=== PATIENT | male | born 2005 | race Caucasian/White ===

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

== ENCOUNTER 2025-02-16 04:28 | Emergency (ER) | payer MEDICAID, SELFPAY ==
--- OUTSIDE RECORDS SUMMARY | 2025-02-16 04:36 | XMS_ITS | Encounter Summary ---
Author Organization [employer] Address 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
--- OUTSIDE RECORDS SUMMARY | 2025-02-16 04:36 | XMS_ITS | Encounter Summary ---
Author Organization [facility] Address [address] [place] [address] Care Team Providers Care Manager Branch Name Role Phone Edy Ramos MD Primary Care Provider Earla ble Encounter Details Date Type Department Care Team (Late st Contact Info) Description 2005 Inpatient Historical HIS IN BED Shante Saunders MD NO ADDRESS ON FILE Single [facility] (Primary Dx) Social History Tobacco Use Types Packs/Day Years Used Date Smoking Tobacco: Never Assessed Sex and Gender Information Value Date Recorded Sex Assigned at Not on file Legal Sex Male 4:27 AM [employer] Gender Identity Not on file Sexual Orientation Not on file documented as of this encounter Plan of Treatment Not on file documented as of this encounter Procedures Procedure Name Priority Date/Time Associated Diagnosis Comments METABOLIC SCREEN Routine 2005 5:28 AM CDT DIFFERENTIAL, MANUAL Routine 2005 3:11 PM CDT CBC WITH DIFFERENTIAL Routine 2005 3:11 PM CDT POC GLUCOSE Routine 2005 3:06 PM CDT BILIRUBIN, TOTAL AND DIRECT Routine 2005 4:20 AM CDT POC GLUCOSE Routine 2005 4:10 AM CDT BASIC CHEM/BILI PROFILE Routine 2005 4:11 AM CDT BILIRUBIN, TOTAL AND DIRECT Routine 2005 4:11 AM CDT POC GLUCOSE Routine 2005 4:10 AM CDT POC GLUCOSE Routine 2005 1:18 AM CDT POC GLUCOSE Routine 2005 7:22 PM CDT BASIC CHEM/BILI PROFILE Routine 2005 4:29 AM CDT DIFFERENTIAL, MANUAL Routine 2005 4:29 AM CDT BILIRUBIN, TOTAL AND DIRECT Routine 2005 4:29 AM CDT CBC WITH DIFFERENTIAL Routine 2005 4:29 AM CDT POC BLOOD GAS AND GLUCOSE Routine 2005 4:20 AM CDT POC GLUCOSE Routine 2005 10:14 PM CDT POC GLUCOSE Routine 2005 9:55 AM CDT PLATELET COUNT Routine 2005 9:53 AM CDT DIFFERENTIAL, MANUAL Routine 2005 7:26 AM CDT CBC WITH DIFFERENTIAL Routine 2005 7:26 AM CDT POC GLUCOSE Routine 2005 7:18 AM CDT BASIC CHEM/BILI PROFILE Routine 2005 4:20 AM CDT BILIRUBIN, TOTAL AND DIRECT Routine 2005 4:20 AM CDT POC BLOOD GAS AND GLUCOSE Routine 2005 4:17 AM CDT POC GLUCOSE Routine 2005 7:21 PM CDT POC GLUCOSE Routine 2005 10:55 AM CDT POC BLOOD GAS AND GLUCOSE Routine 2005 4:49 AM CDT BASIC CHEM/BILI PROFILE Routine 2005 4:41 AM CDT DIFFERENTIAL, MANUAL Routine 2005 4:41 AM CDT BILIRUBIN, TOTAL AND DIRECT Routine 2005 4:41 AM CDT CBC WITH DIFFERENTIAL Routine 2005 4:41 AM CDT POC GLUCOSE Routine 2005 11:45 PM CDT POC GLUCOSE Routine 2005 5:24 PM CDT POC GLUCOSE Routine 2005 11:12 AM CDT BASIC CHEM/BILI PROFILE Routine 2005 4:56 AM CDT DIFFERENTIAL, MANUAL Routine 2005 4:56 AM CDT BILIRUBIN, TOTAL AND DIRECT Routine 2005 4:56 AM CDT POC BLOOD GAS AND GLUCOSE Routine 2005 4:56 AM CDT CBC WITH DIFFERENTIAL Routine 2005 4:56 AM CDT POC GLUCOSE Routine 2005 12:48 AM CDT POC GLUCOSE Routine 2005 7:33 PM CDT GENTAMICIN LEVEL TROUGH Routine 2005 10:35 AM CDT POC BLOOD GAS AND GLUCOSE Routine 2005 10:18 AM CDT BASIC CHEM/BILI PROFILE Routine 2005 4:29 AM CDT DIFFERENTIAL, MANUAL Routine 2005 4:29 AM CDT BILIRUBIN, TOTAL AND DIRECT Routine 2005 4:29 AM CDT CBC WITH DIFFERENTIAL Routine 2005 4:29 AM CDT POC BLOOD GAS AND GLUCOSE Routine 2005 4:11 AM CDT POC BLOOD GAS AND GLUCOSE Routine 2005 10:03 PM CDT DIFFERENTIAL, MANUAL Routine 2005 7:40 PM CDT BILIRUBIN, TOTAL AND DIRECT Routine 2005 7:40 PM CDT CBC WITH DIFFERENTIAL Routine 2005 7:40 PM CDT BASIC METABOLIC PANEL Routine 2005 7:40 PM CDT POC BLOOD GAS AND GLUCOSE Routine 2005 6:05 PM CDT POC BLOOD GAS AND GLUCOSE Routine 2005 3:10 PM CDT BILIRUBIN, TOTAL AND DIRECT Routine 2005 12:57 PM CDT BASIC METABOLIC PANEL Routine 2005 12:57 PM CDT DIFFERENTIAL, MANUAL Routine 2005 12:56 PM CDT POC BLOOD GAS AND GLUCOSE Routine 2005 12:56 PM CDT CBC WITH DIFFERENTIAL Routine 2005 12:56 PM CDT POC BLOOD GAS AND GLUCOSE Routine 2005 11:40 AM CDT POC BLOOD GAS AND GLUCOSE Routine 2005 9:50 AM CDT POC BLOOD GAS AND GLUCOSE Routine 2005 8:48 AM CDT POC BLOOD GAS AND GLUCOSE Routine 2005 7:25 AM CDT SCREEN, NEOGEN Routine 2005 6:03 AM CDT METABOLIC SCREEN Routine 2005 6:03 AM CDT DIFFERENTIAL, MANUAL Routine 2005 5:02 AM CDT CBC WITH DIFFERENTIAL Routine 2005 5:02 AM CDT BASIC METABOLIC PANEL Routine 2005 5:02 AM CDT POC BLOOD GAS AND GLUCOSE Routine 2005 4:56 AM CDT POC BLOOD GAS AND GLUCOSE Routine 2005 2:56 AM CDT POC BLOOD GAS AND GLUCOSE Routine 2005 1:03 AM CDT POC BLOOD GAS AND GLUCOSE Routine 2005 11:12 PM CDT POC GLUCOSE Routine 2005 10:49 PM CDT DIFFERENTIAL, MANUAL Routine 2005 10:30 PM CDT CBC WITH DIFFERENTIAL Routine 2005 10:30 PM CDT MAGNESIUM LEVEL Routine 2005 10:30 PM CDT BASIC METABOLIC PANEL Routine 2005 10:30 PM CDT POC BLOOD GAS AND GLUCOSE Routine 2005 10:11 PM CDT MYCOPLASMA AND UREAPLASMA DETECTION Routine 2005 9:58 PM CDT US HEAD Routine 2005 9:16 PM CDT US HEAD Routine 2005 9:16 PM CDT US HEAD Routine 2005 9:16 PM CDT XR CHEST PA OR AP 1 VW Routine 2005 9:16 PM CDT XR CHEST PA OR AP 1 VW Routine 2005 9:16 PM CDT XR CHEST PA OR AP 1 VW Routine 2005 9:16 PM CDT XR CHEST PA OR AP 1 VW Routine 2005 9:16 PM CDT XR CHEST PA OR AP 1 VW Routine 2005 9:16 PM CDT XR CHEST PA OR AP 1 VW Routine 2005 9:16 PM CDT documented in this encounter Results * METABOLIC SCREEN (2005 5:28 AM CDT) PKU Sent to Reference Lab INTERFACE SYSTEM 2005 5:28 AM CDT Shante Saunders MD CHEMISTRY ORDERABLES Final Result INTERFACE SYSTEM Refer to clinic/hospital department * (ABNORMAL) DIFFERENTIAL, MANUAL (2005 3:11 PM CDT) NEUTROPHILS, SEG 23 15 - 35 % INT ERFACE SYSTEM LYMPHOCYTES 53 43 - 53 % INTERFAC E SYSTEM MONOCYTE 9 8 - 9 % INTERFACE SYSTEM EOSINOPHILS 9(H) 0 - 3 % INTERFAC E SYSTEM BASOPHILS 5(H) 0 - 1 % INTERFACE SYSTEM MYELOCYTES 1 <=1 % INTERFACE SYSTEM PLATELET EST. Normal Normal INTERF FLOWER SYSTEM RBC MORPHOLOGY Abnormal(A ) Normal INTERFACE SYSTEM ANISOCYTOSIS 1+(A) None Seen INTERFA CE SYSTEM POLYCHROMASIA 1+(A) None Seen INTERF FLOWER SYSTEM 2005 3:11 PM CDT Shante Saunders MD HEMATOLOGY ORDERABLES COM F inal Result INTERFACE SYSTEM Refer to clinic/hospital department * (ABNORMAL) CBC WITH DIFFERENTIAL (2005 3:11 PM CDT) WBC 7.0 5.0 - 21.0 K/ul INTERFACE SYSTEM RBC 3.78 3.00 - 6.20 Mil/ul INTERFACE SYSTEM HEMOGLOBIN 11.9(L) 12.2 - 16.0 g/dL INTERFACE SYSTEM HEMATOCRIT 34.6(L) 38.0 - 52.0 % INTERFACE SYSTEM MCV 91.5(L) 95.0 - 118.0 Fl INTERFACE SYSTEM MCH 31.5(L) 33.0 - 41.0 pg INTERFACE SYSTEM MCHC 34.4(H) 27.0 - 33.0 g/dL INTERFACE SYSTEM RDW 15.7(H) 11.0 - 14.5 % INTERFACE SYSTEM PLATELETS 292 140 - 440 K/ul INTERFACE SYSTEM MPV 11.5 8.9 - 12.8 Fl INTERFACE SYSTEM NEUTROPHILS 22.2(L) 42.2 - 75.2 % INTERFACE SYSTEM LYMPHOCYTES 61.9(H) 43.0 - 53.0 % INTERFACE SYSTEM MONOCYTES 9.4(H) 6.0 - 7.0 % INTERFACE SYSTEM EOSINOPHILS 4.1 0.0 - 7.0 % INTERFACE SYSTEM BASOPHILS 2.4(H) 0.0 - 1.0 % INTERFACE SYSTEM NEUTROPHIL ABSOLUTE 1.5(L) 2.0 - 8.0 K/uL INTERFACE SYSTEM LYMPHOCYTE ABSOLUTE 4.3(H) 1.2 - 4.0 K/ul INTERFACE SYSTEM MONOCYTE ABSOLUTE 0.7(H) 0.1 - 0.6 K/ul INTERFACE SYSTEM EOSINOPHIL ABSOLUTE 0.3 0.0 - 0.7 K/ul INTERFACE SYSTEM BASOPHILS ABSOLUTE 0.2 0.0 - 0.2 K/ul INTERFACE SYSTEM 2005 3:11 PM CDT Shante Saunders MD HEMATOLOGY ORDERABLES Final Result Performing Organization Address [facility] Phone Number INTERFACE SYSTEM Refer to clinic/hospital department * POC GLUCOSE (2005 3:06 PM CDT) GLUCOSE POC 91 60 - 100 mg/dL INTERFACE SYSTEM 2005 3:06 PM CDT Shante Saunders MD POINT OF CARE TESTING Final Result Performing Organization Address [facility] Phone Number INTERFACE SYSTEM Refer to clinic/hospital department * BILIRUBIN, TOTAL AND DIRECT (2005 4:20 AM CDT) BILIRUBIN TOTAL 4.7 0.5 - 10.0 mg/dL INTERFACE SYSTEM BILIRUBIN DIRECT 0.5 0.0 - 1.0 mg/dL INTERFACE SYSTEM 2005 4:20 AM CDT Shante Saunders MD CHEMISTRY ORDERABLES Final Result Performing Organization Address [facility] Phone Number INTERFACE SYSTEM Refer to clinic/hospital department * POC GLUCOSE (2005 4:10 AM CDT) GLUCOSE POC 82 60 - 100 mg/dL INTERFACE SYSTEM 2005 4:10 AM CDT Shante Saunders MD POINT OF CARE TESTING Final Result Performing Organization Address [facility] Phone Number INTERFACE SYSTEM Refer to clinic/hospital department * BILIRUBIN, TOTAL AND DIRECT (2005 4:11 AM CDT) BILIRUBIN TOTAL 6.2 0.5 - 10.0 mg/dL INTERFACE SYSTEM BILIRUBIN DIRECT 0.5 0.0 - 1.0 mg/dL INTERFACE SYSTEM 2005 4:11 AM CDT Shante Saunders MD CHEMISTRY ORDERABLES Final Result Performing Organization Address [facility] Phone Number INTERFACE SYSTEM Refer to clinic/hospital department * (ABNORMAL) PANEL 1 (2005 4:11 AM CDT) GLUCOSE 100(H) 50 - 80 mg/dL INTERFACE SYSTEM TRIGLYCERIDE 39 0 - 158 mg/dL INTERFACE SYSTEM BUN 11 9 - 20 mg/dL INTERFACE SYSTEM CREATININE 0.5 0.2 - 0.7 mg/dL INTERFACE SYSTEM SODIUM 134(L) 136 - 145 mEq/L INTERFACE SYSTEM POTASSIUM 5.0 3.5 - 5.0 mEq/L INTERFACE SYSTEM Comment:Specimen slightly he molyzed CHLORIDE 103 95 - 110 mEq/L INTERFACE SYSTEM CO2 29 22 - 32 mmol/l INTERFACE SYSTEM ANION GAP 7(L) 9 - 20 mEq/L INTERFACE SYSTEM OSMOLALITY, CALCULATED 278 275 - 295 mOsm/Kg INTERFACE SYSTEM CALCIUM 10.0 8.4 - 10.5 mg/dL INTERFACE SYSTEM PHOSPHORUS 5.4 4.2 - 9.0 mg/dL INTERFACE SYSTEM MAGNESIUM 1.7 1.7 - 2.4 mg/dL INTERFACE SYSTEM Comment: As of 05 the [facility] has changed testing methods. The new reference range is 1.7-2.4 The old referance range was 1.6-2.3 2005 4:11 AM CDT Shante Saunders MD CHEMISTRY ORDERABLES Final Result Performing Organization Address [facility] Phone Number INTERFACE SYSTEM Refer to clinic/hospital department * (ABNORMAL) POC GLUCOSE (2005 4:10 AM CDT) GLUCOSE POC 98(H) 50 - 80 mg/dL INTERFACE SYSTEM 2005 4:10 AM CDT Shante Saunders MD POINT OF CARE TESTING Final Result Performing Organization Address [facility] Phone Number INTERFACE SYSTEM Refer to clinic/hospital department * (ABNORMAL) POC GLUCOSE (2005 1:18 AM CDT) GLUCOSE POC 82(H) 50 - 80 mg/dL INTERFACE SYSTEM 2005 1:18 AM CDT Shante Saunders MD POINT OF CARE TESTING Final Result Performing Organization Address [facility] Phone Number INTERFACE SYSTEM Refer to clinic/hospital department * POC GLUCOSE (2005 7:22 PM CDT) GLUCOSE POC 78 50 - 80 mg/dL INTERFACE SYSTEM 2005 7:22 PM CDT us Shante Saunders MD POINT OF CARE TESTING Final Result Performing Organization Address [facility] Phone Number INTERFACE SYSTEM Refer to clinic/hospital department * (ABNORMAL) DIFFERENTIAL, MANUAL (2005 4:29 AM CDT) NEUTROPHILS, SEG 14(L) 15 - 35 % INT ERFACE SYSTEM BANDS 8 6 - 15 % INTERFACE SYSTEM LYMPHOCYTES 61(H) 43 - 53 % INTERFAC E SYSTEM MONOCYTE 8 8 - 9 % INTERFACE SYSTEM EOSINOPHILS 8(H) 0 - 3 % INTERFAC E SYSTEM METAMYELOCYTE 1 0 - 1 % INTERF FLOWER SYSTEM PLATELET EST. Normal Normal INTERF FLOWER SYSTEM RBC MORPHOLOGY Abnormal(A ) Normal INTERFACE SYSTEM ANISOCYTOSIS 1+(A) None Seen INTERFA CE SYSTEM POIKILOCYTES 1+(A) None Seen INTERFA CE SYSTEM 2005 4:29 AM CDT Shante Saunders MD HEMATOLOGY ORDERABLES COM F inal Result Performing Organization Address [facility] de Phone Number INTERFACE SYSTEM Refer to clinic/hospital department * BILIRUBIN, TOTAL AND DIRECT (2005 4:29 AM CDT) BILIRUBIN TOTAL 6.3 0.5 - 10.0 mg/dL INTERFACE SYSTEM BILIRUBIN DIRECT 0.4 0.0 - 1.0 mg/dL INTERFACE SYSTEM 2005 4:29 AM CDT Shante Saunders MD CHEMISTRY ORDERABLES Final Result Performing Organization Address [facility] Phone Number INTERFACE SYSTEM Refer to clinic/hospital department * (ABNORMAL) PANEL 1 (2005 4:29 AM CDT) GLUCOSE 93(H) 50 - 80 mg/dL INTERFACE SYSTEM TRIGLYCERIDE 82 0 - 158 mg/dL INTERFACE SYSTEM BUN 13 9 - 20 mg/dL INTERFACE SYSTEM CREATININE 0.4 0.2 - 0.7 mg/dL INTERFACE SYSTEM SODIUM 135(L) 136 - 145 mEq/L INTERFACE SYSTEM POTASSIUM 5.9(H) 3.5 - 5.0 mEq/L INTERFACE SYSTEM Comment:Specimen slightly he molyzed CHLORIDE 105 95 - 110 mEq/L INTERFACE SYSTEM CO2 20(L) 22 - 32 mmol/l INTERFACE SYSTEM ANION GAP 16 9 - 20 mEq/L INTERFACE SYSTEM OSMOLALITY, CALCULATED 282 275 - 295 mOsm/Kg INTERFACE SYSTEM CALCIUM 10.2 8.4 - 10.5 mg/dL INTERFACE SYSTEM PHOSPHORUS 5.4 4.2 - 9.0 mg/dL INTERFACE SYSTEM MAGNESIUM 1.8 1.7 - 2.4 mg/dL INTERFACE SYSTEM Comment: As of 05 the [facility] has changed testing methods. The new reference range is 1.7-2.4 The old referance range was 1.6-2.3 2005 4:29 AM CDT Shante Saunders MD CHEMISTRY ORDERABLES Final Result Performing Organization Address [facility] Phone Number INTERFACE SYSTEM Refer to clinic/hospital department * (ABNORMAL) CBC WITH DIFFERENTIAL (2005 4:29 AM CDT) WBC 6.3(L) 9.4 - 34.0 K/ul INTERFACE SYSTEM RBC 4.57 3.60 - 6.60 Mil/ul INTERFACE SYSTEM HEMOGLOBIN 14.9 14.2 - 17.2 g/dL INTERFACE SYSTEM HEMATOCRIT 43.6(L) 47.0 - 57.0 % INTERFACE SYSTEM MCV 95.4 95.0 - 118.0 Fl INTERFACE SYSTEM MCH 32.6 31.0 - 37.0 pg INTERFACE SYSTEM MCHC 34.2 31.0 - 37.0 g/dL INTERFACE SYSTEM RDW 16.6(H) 11.0 - 14.5 % INTERFACE SYSTEM PLATELETS 186 140 - 440 K/ul INTERFACE SYSTEM MPV 11.6 8.9 - 12.8 Fl INTERFACE SYSTEM 2005 4:29 AM CDT us Shante Saunders MD HEMATOLOGY ORDERABLES Final Result INTERFACE SYSTEM Refer to clinic/hospital department * (ABNORMAL) POC ISTAT 8 (2005 4:20 AM CDT) SPECIMEN TYPE Capillary INTERF FLOWER SYSTEM Comment: Pulse OX: 96 Hemoglobin calculated from Hematocrit result FIO2 21 INTERFACE SYSTEM PH 7.34(L) 7.35 - 7.45 Unit INTERFACE SYSTEM PH TEMP CORRECT 7.34(L) 7.35 - 7.45 Unit INTERFACE SYSTEM PCO2 POC 49(H) 35 - 45 mmHg INTERFACE SYSTEM PCO2 TEMP CORRECT 49(H) 35 - 45 mmHg INTERFACE SYSTEM PO2 57(L) 80 - 105 mmHg INTERFACE SYSTEM PO2 TEMP CORRECT 57(L) 80 - 105 mmHg INTERFACE SYSTEM HCO3 (CALC) POC 26.7(H) 22.0 - 26.0 mmol/l INTERFACE SYSTEM BASE EXCESS 1 -2 - 3 mmol/l INTERFACE SYSTEM HEMOGLOBIN POC 16.3 3 g/dL 13.5 - 18.0 g/dL INTERFACE SYSTEM HEMATOCRIT ABG 48 38 - 51 % INTER FACE SYSTEM O2 SATURATION 87(L) 95 - 98 % INTERF FLOWER SYSTEM TCO2 (CALC) POC 28(H) 23 - 27 mmol/l INTERFACE SYSTEM SODIUM 136(L) 138 - 146 mEq/L INTERFACE SYSTEM POTASSIUM 5.4(H) 3.5 - 4.9 mEq/L INTERFACE SYSTEM CALCIUM IONIZED 1.38(H) 1.12 - 1.32 mmol/l INTERFACE SYSTEM GLUCOSE 100(H) 50 - 80 mg/dL INTERFACE SYSTEM 2005 4:20 AM CDT Shante Saunders MD ABG ORDERABLES Final Resul t Performing Organization Address [facility] Phone Number INTERFACE SYSTEM Refer to clinic/hospital department * (ABNORMAL) POC GLUCOSE (2005 10:14 PM CDT) GLUCOSE POC 96(H) 50 - 80 mg/dL INTERFACE SYSTEM 2005 10:1 4 PM CDT Shante Saunders MD POINT OF CARE TESTING Final Result Performing Organization Address [facility] Phone Number INTERFACE SYSTEM Refer to clinic/hospital department * (ABNORMAL) POC GLUCOSE (2005 9:55 AM CDT) GLUCOSE POC 104(H) 50 - 80 mg/dL INTERFACE SYSTEM 2005 9:55 AM CDT Shante Saunders MD POINT OF CARE TESTING Final Result Performing Organization Address [facility] Phone Number INTERFACE SYSTEM Refer to clinic/hospital department * PLATELET COUNT (2005 9:53 AM CDT) Pathologist [facility] PLATELETS 218 140 - 440 K/ul INTERFACE SYSTEM 2005 9:53 AM CDT Shante Saunders MD HEMATOLOGY ORDERABLES Final Result Performing Organization Address [facility] de Phone Number INTERFACE SYSTEM Refer to clinic/hospital department * (ABNORMAL) DIFFERENTIAL, MANUAL (2005 7:26 AM CDT) NEUTROPHILS, SEG 23 15 - 35 % INT ERFACE SYSTEM BANDS 4(L) 6 - 15 % INTERFACE SYSTEM LYMPHOCYTES 57(H) 43 - 53 % INTERFAC E SYSTEM MONOCYTE 5(L) 8 - 9 % INTERFACE SYSTEM EOSINOPHILS 5(H) 0 - 3 % INTERFAC E SYSTEM BASOPHILS 4(H) 0 - 1 % INTERFACE SYSTEM METAMYELOCYTE 1 0 - 1 % INTERF FLOWER SYSTEM MYELOCYTES 1 <=1 % INTERFACE SYSTEM PLATELET EST. Decreased( A) Normal INTERFACE SYSTEM RBC MORPHOLOGY Normal Normal INTER FACE SYSTEM 2005 7:26 AM CDT Shante Saunders MD HEMATOLOGY ORDERABLES COM F inal Result Performing Organization Address [facility] de Phone Number INTERFACE SYSTEM Refer to clinic/hospital department * (ABNORMAL) CBC WITH DIFFERENTIAL (2005 7:26 AM CDT) WBC 6.5(L) 9.4 - 34.0 K/ul INTERFACE SYSTEM RBC 4.78 3.60 - 6.60 Mil/ul INTERFACE SYSTEM HEMOGLOBIN 15.5 14.2 - 17.2 g/dL INTERFACE SYSTEM HEMATOCRIT 47.2 47.0 - 57.0 % INTERFACE SYSTEM MCV 98.7 95.0 - 118.0 Fl INTERFACE SYSTEM MCH 32.4 31.0 - 37.0 pg INTERFACE SYSTEM MCHC 32.8 31.0 - 37.0 g/dL INTERFACE SYSTEM RDW 17.0(H) 11.0 - 14.5 % INTERFACE SYSTEM PLATELETS 64(L) 140 - 440 K/ul INTERFACE SYSTEM MPV 11.5 8.9 - 12.8 Fl INTERFACE SYSTEM 2005 7:26 AM CDT Shante Saunders MD HEMATOLOGY ORDERABLES Final Result Performing Organization Address [facility] Phone Number INTERFACE SYSTEM Refer to clinic/hospital department * (ABNORMAL) POC GLUCOSE (2005 7:18 AM CDT) GLUCOSE POC 98(H) 50 - 80 mg/dL INTERFACE SYSTEM 2005 7:18 AM CDT Shante Saunders MD POINT OF CARE TESTING Final Result Performing Organization Address [facility] Co de Phone Number INTERFACE SYSTEM Refer to clinic/hospital department * BILIRUBIN, TOTAL AND DIRECT (2005 4:20 AM CDT) BILIRUBIN TOTAL 5.3 0.5 - 10.0 mg/dL INTERFACE SYSTEM BILIRUBIN DIRECT 0.5 0.0 - 1.0 mg/dL INTERFACE SYSTEM 2005 4:20 AM CDT Shante Saunders MD CHEMISTRY ORDERABLES Final Result Performing Organization Address [facility] Co de Phone Number INTERFACE SYSTEM Refer to clinic/hospital department * (ABNORMAL) PANEL 1 (2005 4:20 AM CDT) GLUCOSE 100(H) 50 - 80 mg/dL INTERFACE SYSTEM TRIGLYCERIDE 87 0 - 158 mg/dL INTERFACE SYSTEM BUN 13 9 - 20 mg/dL INTERFACE SYSTEM CREATININE 0.4 0.2 - 0.7 mg/dL INTERFACE SYSTEM SODIUM 140 136 - 145 mEq/L INTERFACE SYSTEM POTASSIUM 5.5(H) 3.5 - 5.0 mEq/L INTERFACE SYSTEM CHLORIDE 105 95 - 110 mEq/L INTERFACE SYSTEM CO2 24 22 - 32 mmol/l INTERFACE SYSTEM ANION GAP 17 9 - 20 mEq/L INTERFACE SYSTEM OSMOLALITY, CALCULATED 291 275 - 295 mOsm/Kg INTERFACE SYSTEM CALCIUM 10.0 8.4 - 10.5 mg/dL INTERFACE SYSTEM PHOSPHORUS 5.4 4.2 - 9.0 mg/dL INTERFACE SYSTEM MAGNESIUM 2.1 1.7 - 2.4 mg/dL INTERFACE SYSTEM Comment: As of 05 the [facility] has changed testing methods. The new reference range is 1.7-2.4 The old referance range was 1.6-2.3 2005 4:20 AM CDT Shante Saunders MD CHEMISTRY ORDERABLES Final Result Performing Organization Address [facility] Co de Phone Number INTERFACE SYSTEM Refer to clinic/hospital department * (ABNORMAL) POC ISTAT 8 (2005 4:17 AM CDT) SPECIMEN TYPE Capillary INTERF FLOWER SYSTEM Comment: Pulse OX: 94 Hemoglobin calculated from Hematocrit result FIO2 21 INTERFACE SYSTEM PH 7.35 7.35 - 7.45 Unit INTERFACE SYSTEM PH TEMP CORRECT 7.35 7.35 - 7.45 Unit INTERFACE SYSTEM PCO2 POC 48(H) 35 - 45 mmHg INTERFACE SYSTEM PCO2 TEMP CORRECT 48(H) 35 - 45 mmHg INTERFACE SYSTEM PO2 60(L) 80 - 105 mmHg INTERFACE SYSTEM PO2 TEMP CORRECT 60(L) 80 - 105 mmHg INTERFACE SYSTEM HCO3 (CALC) POC 26.6(H) 22.0 - 26.0 mmol/l INTERFACE SYSTEM BASE EXCESS 1 -2 - 3 mmol/l INTERFACE SYSTEM HEMOGLOBIN POC 15.6 3 g/dL 13.5 - 18.0 g/dL INTERFACE SYSTEM HEMATOCRIT ABG 46 38 - 51 % INTER FACE SYSTEM O2 SATURATION 89(L) 95 - 98 % INTERF FLOWER SYSTEM TCO2 (CALC) POC 28(H) 23 - 27 mmol/l INTERFACE SYSTEM SODIUM 137(L) 138 - 146 mEq/L INTERFACE SYSTEM POTASSIUM 5.5(H) 3.5 - 4.9 mEq/L INTERFACE SYSTEM CALCIUM IONIZED 1.35(H) 1.12 - 1.32 mmol/l INTERFACE SYSTEM GLUCOSE 105(H) 50 - 80 mg/dL INTERFACE SYSTEM 2005 4:17 AM CDT Shante Saunders MD ABG ORDERABLES Final Resul t Performing Organization Address [facility] Co de Phone Number INTERFACE SYSTEM Refer to clinic/hospital department * (ABNORMAL) POC GLUCOSE (2005 7:21 PM CDT) GLUCOSE POC 100(H) 50 - 80 mg/dL INTERFACE SYSTEM 2005 7:21 PM CDT Shante Saunders MD POINT OF CARE TESTING Final Result INTERFACE SYSTEM Refer to clinic/hospital department * (ABNORMAL) POC GLUCOSE (2005 10:55 AM CDT) GLUCOSE POC 103(H) 50 - 80 mg/dL INTERFACE SYSTEM 2005 10:5 5 AM CDT Shante Saunders MD POINT OF CARE TESTING Final Result Performing Organization Address [facility] Co de Phone Number INTERFACE SYSTEM Refer to clinic/hospital department * (ABNORMAL) POC ISTAT 8 (2005 4:49 AM CDT) SPECIMEN TYPE Capillary INTERF FLOWER SYSTEM Comment: Pulse OX: 99 Hemoglobin calculated from Hematocrit result FIO2 12 INTERFACE SYSTEM PH 7.35 7.35 - 7.45 Unit INTERFACE SYSTEM PH TEMP CORRECT 7.35 7.35 - 7.45 Unit INTERFACE SYSTEM PCO2 POC 51(H) 35 - 45 mmHg INTERFACE SYSTEM PCO2 TEMP CORRECT 51(H) 35 - 45 mmHg INTERFACE SYSTEM PO2 65(L) 80 - 105 mmHg INTERFACE SYSTEM PO2 TEMP CORRECT 65(L) 80 - 105 mmHg INTERFACE SYSTEM HCO3 (CALC) POC 28.2(H) 22.0 - 26.0 mmol/l INTERFACE SYSTEM BASE EXCESS 3 -2 - 3 mmol/l INTERFACE SYSTEM HEMOGLOBIN POC 17.0 3 g/dL 13.5 - 18.0 g/dL INTERFACE SYSTEM HEMATOCRIT ABG 50 38 - 51 % INTER FACE SYSTEM O2 SATURATION 91(L) 95 - 98 % INTERF FLOWER SYSTEM TCO2 (CALC) POC 30(H) 23 - 27 mmol/l INTERFACE SYSTEM SODIUM 141 138 - 146 mEq/L INTERFACE SYSTEM POTASSIUM 4.4 3.5 - 4.9 mEq/L INTERFACE SYSTEM CALCIUM IONIZED 1.22 1.12 - 1.32 mmol/l INTERFACE SYSTEM GLUCOSE 86(H) 50 - 80 mg/dL INTERFACE SYSTEM 2005 4:49 AM CDT Shante Saunders MD ABG ORDERABLES Final Resul t INTERFACE SYSTEM Refer to clinic/hospital department * (ABNORMAL) DIFFERENTIAL, MANUAL (2005 4:41 AM CDT) NEUTROPHILS, SEG 27 15 - 35 % INT ERFACE SYSTEM BANDS 2(L) 10 - 18 % INTERFACE SYSTEM LYMPHOCYTES 44(H) 26 - 36 % INTERFAC E SYSTEM MONOCYTE 11(H) 5 - 6 % INTERFACE SYSTEM EOSINOPHILS 15(H) 0 - 3 % INTERFAC E SYSTEM BASOPHILS 1 0 - 1 % INTERFACE SYSTEM PLATELET EST. Normal Normal INTERF FLOWER SYSTEM RBC MORPHOLOGY Abnormal(A ) Normal INTERFACE SYSTEM ANISOCYTOSIS 1+(A) None Seen INTERFA CE SYSTEM POIKILOCYTES 1+(A) None Seen INTERFA CE SYSTEM 2005 4:41 AM CDT Shante Saunders MD HEMATOLOGY ORDERABLES COM F inal Result Performing Organization Address [facility] Co de Phone Number INTERFACE SYSTEM Refer to clinic/hospital department * BILIRUBIN, TOTAL AND DIRECT (2005 4:41 AM CDT) BILIRUBIN TOTAL 6.0 0.5 - 10.0 mg/dL INTERFACE SYSTEM BILIRUBIN DIRECT 0.7 0.0 - 1.0 mg/dL INTERFACE SYSTEM 2005 4:41 AM CDT Shante Saunders MD CHEMISTRY ORDERABLES Final Result Performing Organization Address [facility] Phone Number INTERFACE SYSTEM Refer to clinic/hospital department * (ABNORMAL) PANEL 1 (2005 4:41 AM CDT) GLUCOSE 87(H) 50 - 80 mg/dL INTERFACE SYSTEM TRIGLYCERIDE 61 0 - 158 mg/dL INTERFACE SYSTEM BUN 11 9 - 20 mg/dL INTERFACE SYSTEM CREATININE 0.5 0.2 - 0.7 mg/dL INTERFACE SYSTEM SODIUM 143 136 - 145 mEq/L INTERFACE SYSTEM POTASSIUM 4.6 3.5 - 5.0 mEq/L INTERFACE SYSTEM Comment:Specimen slightly he molyzed CHLORIDE 107 95 - 110 mEq/L INTERFACE SYSTEM CO2 27 22 - 32 mmol/l INTERFACE SYSTEM ANION GAP 14 9 - 20 mEq/L INTERFACE SYSTEM OSMOLALITY, CALCULATED 293 275 - 295 mOsm/Kg INTERFACE SYSTEM CALCIUM 9.1 8.4 - 10.5 mg/dL INTERFACE SYSTEM PHOSPHORUS 7.0 4.2 - 9.0 mg/dL INTERFACE SYSTEM MAGNESIUM 2.4 1.7 - 2.4 mg/dL INTERFACE SYSTEM Comment: As of 05 the [facility] has changed testing methods. The new reference range is 1.7-2.4 The old referance range was 1.6-2.3 2005 4:41 AM CDT Shante Saunders MD CHEMISTRY ORDERABLES Final Result Performing Organization Address City/[facility] de Phone Number INTERFACE SYSTEM Refer to clinic/hospital department * (ABNORMAL) CBC WITH DIFFERENTIAL (2005 4:41 AM CDT) WBC 5.0(L) 9.4 - 34.0 K/ul INTERFACE SYSTEM RBC 5.01 4.70 - 6.10 Mil/ul INTERFACE SYSTEM HEMOGLOBIN 16.5(L) 17.4 - 22.2 g/dL INTERFACE SYSTEM HEMATOCRIT 46.1(L) 58.0 - 74.0 % INTERFACE SYSTEM MCV 92.0(L) 108.0 - 136.0 Fl INTERFACE SYSTEM MCH 32.9 31.0 - 37.0 pg INTERFACE SYSTEM MCHC 35.8 31.0 - 37.0 g/dL INTERFACE SYSTEM RDW 17.9(H) 11.0 - 14.5 % INTERFACE SYSTEM PLATELETS 199 140 - 440 K/ul INTERFACE SYSTEM MPV 10.3 8.9 - 12.8 Fl INTERFACE SYSTEM 2005 4:41 AM CDT Shante Saunders MD HEMATOLOGY ORDERABLES Final Result Performing Organization Address [facility] Phone Number INTERFACE SYSTEM Refer to clinic/hospital department * (ABNORMAL) POC GLUCOSE (2005 11:45 PM CDT) GLUCOSE POC 102(H) 50 - 80 mg/dL INTERFACE SYSTEM 2005 11:4 5 PM CDT Shante Saunders MD POINT OF CARE TESTING Final Result Performing Organization Address City/[facility] de Phone Number INTERFACE SYSTEM Refer to clinic/hospital department * POC GLUCOSE (2005 5:24 PM CDT) GLUCOSE POC 71 50 - 80 mg/dL INTERFACE SYSTEM 2005 5:24 PM CDT Shante Saunders MD POINT OF CARE TESTING Final Result INTERFACE SYSTEM Refer to clinic/hospital department * (ABNORMAL) POC GLUCOSE (2005 11:12 AM CDT) GLUCOSE POC 88(H) 50 - 80 mg/dL INTERFACE SYSTEM 2005 11:1 2 AM CDT Shante Saunders MD POINT OF CARE TESTING Final Result INTERFACE SYSTEM Refer to clinic/hospital department * (ABNORMAL) POC ISTAT 8 (2005 4:56 AM CDT) SPECIMEN TYPE Capillary INTERF FLOWER SYSTEM Comment: Pulse OX: 95 Hemoglobin calculated from Hematocrit result FIO2 22 INTERFACE SYSTEM PH 7.36 7.35 - 7.45 Unit INTERFACE SYSTEM PH TEMP CORRECT 7.36 7.35 - 7.45 Unit INTERFACE SYSTEM PCO2 POC 48(H) 35 - 45 mmHg INTERFACE SYSTEM PCO2 TEMP CORRECT 48(H) 35 - 45 mmHg INTERFACE SYSTEM PO2 49(L) 80 - 105 mmHg INTERFACE SYSTEM PO2 TEMP CORRECT 49(L) 80 - 105 mmHg INTERFACE SYSTEM HCO3 (CALC) POC 26.7(H) 22.0 - 26.0 mmol/l INTERFACE SYSTEM BASE EXCESS 1 -2 - 3 mmol/l INTERFACE SYSTEM HEMOGLOBIN POC 17.7 3 g/dL 13.5 - 18.0 g/dL INTERFACE SYSTEM HEMATOCRIT ABG 52(H) 38 - 51 % INTER FACE SYSTEM O2 SATURATION 82(L) 95 - 98 % INTERF FLOWER SYSTEM TCO2 (CALC) POC 28(H) 23 - 27 mmol/l INTERFACE SYSTEM SODIUM 141 138 - 146 mEq/L INTERFACE SYSTEM POTASSIUM 4.5 3.5 - 4.9 mEq/L INTERFACE SYSTEM CALCIUM IONIZED 1.14 1.12 - 1.32 mmol/l INTERFACE SYSTEM GLUCOSE 75 50 - 80 mg/dL INTERFACE SYSTEM 2005 4:56 AM CDT Shante Saunders MD ABG ORDERABLES Final Resul t Performing Organization Address [facility] Phone Number INTERFACE SYSTEM Refer to clinic/hospital department * (ABNORMAL) DIFFERENTIAL, MANUAL (2005 4:56 AM CDT) NEUTROPHILS, SEG 34 32 - 62 % INT ERFACE SYSTEM BANDS 1(L) 10 - 18 % INTERFACE SYSTEM LYMPHOCYTES 50(H) 26 - 36 % INTERFAC E SYSTEM MONOCYTE 9(H) 5 - 6 % INTERFACE SYSTEM EOSINOPHILS 5(H) 0 - 3 % INTERFAC E SYSTEM BASOPHILS 1 0 - 1 % INTERFACE SYSTEM PLATELET EST. Normal Normal INTERF FLOWER SYSTEM RBC MORPHOLOGY Abnormal(A ) Normal INTERFACE SYSTEM ANISOCYTOSIS 1+(A) None Seen INTERFA CE SYSTEM POIKILOCYTES 1+(A) None Seen INTERFA CE SYSTEM POLYCHROMASIA 1+(A) None Seen INTERF FLOWER SYSTEM 2005 4:56 AM CDT Shante Saunders MD HEMATOLOGY ORDERABLES COM F inal Result Performing Organization Address [facility] Phone Number INTERFACE SYSTEM Refer to clinic/hospital department * BILIRUBIN, TOTAL AND DIRECT (2005 4:56 AM CDT) BILIRUBIN TOTAL 6.4 0.5 - 10.0 mg/dL INTERFACE SYSTEM BILIRUBIN DIRECT 0.6 0.0 - 1.0 mg/dL INTERFACE SYSTEM 2005 4:56 AM CDT Shante Saunders MD CHEMISTRY ORDERABLES Final Result Performing Organization Address [facility] Phone Number INTERFACE SYSTEM Refer to clinic/hospital department * (ABNORMAL) PANEL 1 (2005 4:56 AM CDT) GLUCOSE 70 50 - 80 mg/dL INTERFACE SYSTEM TRIGLYCERIDE 48 0 - 158 mg/dL INTERFACE SYSTEM BUN 11 9 - 20 mg/dL INTERFACE SYSTEM CREATININE 0.2 0.2 - 0.7 mg/dL INTERFACE SYSTEM SODIUM 146(H) 136 - 145 mEq/L INTERFACE SYSTEM POTASSIUM 5.8(H) 3.5 - 5.0 mEq/L INTERFACE SYSTEM Comment:Specimen moderately hemolyzed CHLORIDE 110 95 - 110 mEq/L INTERFACE SYSTEM CO2 20(L) 22 - 32 mmol/l INTERFACE SYSTEM ANION GAP 22(H) 9 - 20 mEq/L INTERFACE SYSTEM OSMOLALITY, CALCULATED 300(H) 275 - 295 mOsm/Kg INTERFACE SYSTEM CALCIUM 8.2(L) 8.4 - 10.5 mg/dL INTERFACE SYSTEM PHOSPHORUS 8.4 4.2 - 9.0 mg/dL INTERFACE SYSTEM MAGNESIUM 2.5(H) 1.7 - 2.4 mg/dL INTERFACE SYSTEM Comment: As of 05 the [facility] has changed testing methods. The new reference range is 1.7-2.4 The old referance range was 1.6-2.3 2005 4:5 6 AM CDT Shante Saunders MD CHEMISTRY ORDERABLES Final Result Performing Organization Address [facility] de Phone Number INTERFACE SYSTEM Refer to clinic/hospital department * (ABNORMAL) CBC WITH DIFFERENTIAL (2005 4:56 AM CDT) RBC 4.74 4.70 - 6.10 Mil/ul INTERFACE SYSTEM HEMOGLOBIN 15.7(L) 17.4 - 22.2 g/dL INTERFACE SYSTEM HEMATOCRIT 45.9(L) 58.0 - 74.0 % INTERFACE SYSTEM MCV 96.8(L) 108.0 - 136.0 Fl INTERFACE SYSTEM MCH 33.1 31.0 - 37.0 pg INTERFACE SYSTEM MCHC 34.2 31.0 - 37.0 g/dL INTERFACE SYSTEM RDW 18.8(H) 11.0 - 14.5 % INTERFACE SYSTEM PLATELETS 148 140 - 440 K/ul INTERFACE SYSTEM MPV 10.9 8.9 - 12.8 Fl INTERFACE SYSTEM WBC 4.5(L) 9.4 - 34.0 K/ul INTERFACE SYSTEM 2005 4:56 AM CDT Shante Saunders MD HEMATOLOGY ORDERABLES Final Result Performing Organization Address [facility] de Phone Number INTERFACE SYSTEM Refer to clinic/hospital department * POC GLUCOSE (2005 12:48 AM CDT) GLUCOSE POC 73 50 - 80 mg/dL INTERFACE SYSTEM 2005 12:4 8 AM CDT Shante Saunders MD POINT OF CARE TESTING Final Result Performing Organization Address City/[facility] de Phone Number INTERFACE SYSTEM Refer to clinic/hospital department * (ABNORMAL) POC GLUCOSE (2005 7:33 PM CDT) GLUCOSE POC 100(H) 50 - 80 mg/dL INTERFACE SYSTEM 2005 7:33 PM CDT Shante Saunders MD POINT OF CARE TESTING Final Result Performing Organization Address [facility] Phone Number INTERFACE SYSTEM Refer to clinic/hospital department * GENTAMICIN LEVEL TROUGH (2005 10:35 AM CDT) GENTAMICIN, TROUGH 0.5 0.0 - 2.0 mcg/mL INTERFACE SYSTEM 2005 10:3 5 AM CDT Shante Saunders MD CHEMISTRY ORDERABLES Final Result Performing Organization Address [facility] Phone Number INTERFACE SYSTEM Refer to clinic/hospital department * (ABNORMAL) POC ISTAT 8 (2005 10:18 AM CDT) SPECIMEN TYPE Arterial INTERF FLOWER SYSTEM Comment: Pulse OX: 92 Hemoglobin calculated from Hematocrit result FIO2 23 INTERFACE SYSTEM PH 7.35 7.35 - 7.45 Unit INTERFACE SYSTEM PH TEMP CORRECT 7.35 7.35 - 7.45 Unit INTERFACE SYSTEM PCO2 POC 45 35 - 45 mmHg INTERFACE SYSTEM PCO2 TEMP CORRECT 45 35 - 45 mmHg INTERFACE SYSTEM PO2 51(L) 80 - 105 mmHg INTERFACE SYSTEM PO2 TEMP CORRECT 51(L) 80 - 105 mmHg INTERFACE SYSTEM HCO3 (CALC) POC 24.7 22.0 - 26.0 mmol/l INTERFACE SYSTEM BASE EXCESS -1 -2 - 3 mmol/l INTERFACE SYSTEM HEMOGLOBIN POC 10.5 3 g/dL 13.5 - 18.0 g/dL INTERFACE SYSTEM HEMATOCRIT ABG 31(L) 38 - 51 % INTER FACE SYSTEM O2 SATURATION 83(L) 95 - 98 % INTERF FLOWER SYSTEM TCO2 (CALC) POC 26 23 - 27 mmol/l INTERFACE SYSTEM SODIUM 142 138 - 146 mEq/L INTERFACE SYSTEM POTASSIUM 4.1 3.5 - 4.9 mEq/L INTERFACE SYSTEM CALCIUM IONIZED 1.16 1.00 - 1.18 mmol/l INTERFACE SYSTEM GLUCOSE 68 50 - 80 mg/dL INTERFACE SYSTEM 2005 10:1 8 AM CDT Shante Saunders MD ABG ORDERABLES Final Resul t Performing Organization Address City/[facility] de Phone Number INTERFACE SYSTEM Refer to clinic/hospital department * (ABNORMAL) DIFFERENTIAL, MANUAL (2005 4:29 AM CDT) NEUTROPHILS, SEG 59 32 - 62 % INT ERFACE SYSTEM BANDS 5(L) 10 - 18 % INTERFACE SYSTEM LYMPHOCYTES 29 26 - 36 % INTERFAC E SYSTEM MONOCYTE 7(H) 5 - 6 % INTERFACE SYSTEM PLATELET EST. Normal Normal INTERF FLOWER SYSTEM RBC MORPHOLOGY Abnormal(A ) Normal INTERFACE SYSTEM ANISOCYTOSIS 1+(A) None Seen INTERFA CE SYSTEM POIKILOCYTES 1+(A) None Seen INTERFA CE SYSTEM POLYCHROMASIA 1+(A) None Seen INTERF FLOWER SYSTEM 2005 4:29 AM CDT Shante Saunders MD HEMATOLOGY ORDERABLES COM F inal Result Performing Organization Address [facility] de Phone Number INTERFACE SYSTEM Refer to clinic/hospital department * BILIRUBIN, TOTAL AND DIRECT (2005 4:29 AM CDT) BILIRUBIN TOTAL 6.4 0.5 - 10.0 mg/dL INTERFACE SYSTEM BILIRUBIN DIRECT 0.9 0.0 - 1.0 mg/dL INTERFACE SYSTEM 2005 4:29 AM CDT Shante Saunders MD CHEMISTRY ORDERABLES Final Result Performing Organization Address [facility] de Phone Number INTERFACE SYSTEM Refer to clinic/hospital department * (ABNORMAL) PANEL 1 (2005 4:29 AM CDT) GLUCOSE 86(H) 50 - 80 mg/dL INTERFACE SYSTEM TRIGLYCERIDE 38 0 - 158 mg/dL INTERFACE SYSTEM BUN 14 9 - 20 mg/dL INTERFACE SYSTEM CREATININE 0.6 0.2 - 0.7 mg/dL INTERFACE SYSTEM SODIUM 142 136 - 145 mEq/L INTERFACE SYSTEM POTASSIUM 3.7 3.5 - 5.0 mEq/L INTERFACE SYSTEM CHLORIDE 110 95 - 110 mEq/L INTERFACE SYSTEM CO2 26 22 - 32 mmol/l INTERFACE SYSTEM ANION GAP 10 9 - 20 mEq/L INTERFACE SYSTEM OSMOLALITY, CALCULATED 291 275 - 295 mOsm/Kg INTERFACE SYSTEM CALCIUM 7.6(L) 8.4 - 10.5 mg/dL INTERFACE SYSTEM PHOSPHORUS 7.1 4.2 - 9.0 mg/dL INTERFACE SYSTEM MAGNESIUM 2.7(H) 1.7 - 2.4 mg/dL INTERFACE SYSTEM Comment: As of 05 the [facility] has changed testing methods. The new reference range is 1.7-2.4 The old referance range was 1.6-2.3 2005 4:29 AM CDT Shante Saunders MD CHEMISTRY ORDERABLES Final Result Performing Organization Address [facility] Phone Number INTERFACE SYSTEM Refer to clinic/hospital department * (ABNORMAL) CBC WITH DIFFERENTIAL (2005 4:29 AM CDT) WBC 6.1(L) 9.4 - 34.0 K/ul INTERFACE SYSTEM Comment: WBC Corrected for Nucleated RBC'S RBC 3.14(L) 4.00 - 6.60 Mil/ul INTERFACE SYSTEM HEMOGLOBIN 10.9(L) 14.5 - 22.5 g/dL INTERFACE SYSTEM HEMATOCRIT 31.9(L) 45.0 - 67.0 % INTERFACE SYSTEM MCV 101.6 95.0 - 121.0 Fl INTERFACE SYSTEM MCH 34.7 31.0 - 37.0 pg INTERFACE SYSTEM MCHC 34.2 31.0 - 37.0 g/dL INTERFACE SYSTEM RDW 19.7(H) 11.0 - 14.5 % INTERFACE SYSTEM PLATELETS 199 140 - 440 K/ul INTERFACE SYSTEM MPV 9.8 8.9 - 12.8 Fl INTERFACE SYSTEM NRBC 3(H) <=1 INTERFACE SYSTEM 2005 4:29 AM CDT Shante Saunders MD HEMATOLOGY ORDERABLES Final Result INTERFACE SYSTEM Refer to clinic/hospital department * (ABNORMAL) POC ISTAT 8 (2005 4:11 AM CDT) SPECIMEN TYPE Arterial INTERF FLOWER SYSTEM Comment: Pulse OX: 96 Hemoglobin calculated from Hematocrit result FIO2 26 INTERFACE SYSTEM PH 7.34(L) 7.35 - 7.45 Unit INTERFACE SYSTEM PH TEMP CORRECT 7.34(L) 7.35 - 7.45 Unit INTERFACE SYSTEM PCO2 POC 38 35 - 45 mmHg INTERFACE SYSTEM PCO2 TEMP CORRECT 38 35 - 45 mmHg INTERFACE SYSTEM PO2 71(L) 80 - 105 mmHg INTERFACE SYSTEM PO2 TEMP CORRECT 71(L) 80 - 105 mmHg INTERFACE SYSTEM HCO3 (CALC) POC 20.9(L) 22.0 - 26.0 mmol/l INTERFACE SYSTEM BASE EXCESS -5(L) -2 - 3 mmol/l INTERFACE SYSTEM HEMOGLOBIN POC 9.9 3 g/dL 13.5 - 18.0 g/dL INTERFACE SYSTEM HEMATOCRIT ABG 29(L) 38 - 51 % INTER FACE SYSTEM O2 SATURATION 93(L) 95 - 98 % INTERF FLOWER SYSTEM TCO2 (CALC) POC 22(L) 23 - 27 mmol/l INTERFACE SYSTEM SODIUM 137(L) 138 - 146 mEq/L INTERFACE SYSTEM POTASSIUM 3.4(L) 3.5 - 4.9 mEq/L INTERFACE SYSTEM CALCIUM IONIZED 1.05 1.00 - 1.18 mmol/l INTERFACE SYSTEM GLUCOSE 83(H) 50 - 80 mg/dL INTERFACE SYSTEM 2005 4:11 AM CDT Shante Saunders MD ABG ORDERABLES Final Resul t INTERFACE SYSTEM Refer to clinic/hospital department * (ABNORMAL) POC ISTAT 8 (2005 10:03 PM CDT) SPECIMEN TYPE Arterial INTERF FLOWER SYSTEM Comment: Pulse OX: 94 Hemoglobin calculated from Hematocrit result FIO2 29 INTERFACE SYSTEM PH 7.34(L) 7.35 - 7.45 Unit INTERFACE SYSTEM PH TEMP CORRECT 7.34(L) 7.35 - 7.45 Unit INTERFACE SYSTEM PCO2 POC 40 35 - 45 mmHg INTERFACE SYSTEM PCO2 TEMP CORRECT 40 35 - 45 mmHg INTERFACE SYSTEM PO2 80 80 - 105 mmHg INTERFACE SYSTEM PO2 TEMP CORRECT 80 80 - 105 mmHg INTERFACE SYSTEM HCO3 (CALC) POC 22.0 22.0 - 26.0 mmol/l INTERFACE SYSTEM BASE EXCESS -4(L) -2 - 3 mmol/l INTERFACE SYSTEM HEMOGLOBIN POC 10.9 3 g/dL 13.5 - 18.0 g/dL INTERFACE SYSTEM HEMATOCRIT ABG 32(L) 38 - 51 % INTER FACE SYSTEM O2 SATURATION 95 95 - 98 % INTERF FLOWER SYSTEM TCO2 (CALC) POC 23 23 - 27 mmol/l INTERFACE SYSTEM SODIUM 138 138 - 146 mEq/L INTERFACE SYSTEM POTASSIUM 3.6 3.5 - 4.9 mEq/L INTERFACE SYSTEM CALCIUM IONIZED 1.11 1.00 - 1.18 mmol/l INTERFACE SYSTEM GLUCOSE 122(H) 50 - 80 mg/dL INTERFACE SYSTEM 2005 10:0 3 PM CDT Shante Saunders MD ABG ORDERABLES Final Resul t Performing Organization Address [facility] Phone Number INTERFACE SYSTEM Refer to clinic/hospital department * BILIRUBIN, TOTAL AND DIRECT (2005 7:40 PM CDT) BILIRUBIN TOTAL 6.4 0.5 - 10.0 mg/dL INTERFACE SYSTEM BILIRUBIN DIRECT 0.6 0.0 - 1.0 mg/dL INTERFACE SYSTEM 2005 7:40 PM CDT Shante Saunders MD CHEMISTRY ORDERABLES Final Result Performing Organization Address [facility] de Phone Number INTERFACE SYSTEM Refer to clinic/hospital department * (ABNORMAL) BASIC METABOLIC PANEL (2005 7:40 PM CDT) GLUCOSE 130(H) 50 - 80 mg/dL INTERFACE SYSTEM BUN 16 9 - 20 mg/dL INTERFACE SYSTEM CREATININE 0.6 0.2 - 0.7 mg/dL INTERFACE SYSTEM SODIUM 145 136 - 145 mEq/L INTERFACE SYSTEM POTASSIUM 4.4 3.5 - 5.0 mEq/L INTERFACE SYSTEM CHLORIDE 110 95 - 110 mEq/L INTERFACE SYSTEM CO2 21(L) 22 - 32 mmol/l INTERFACE SYSTEM ANION GAP 18 9 - 20 mEq/L INTERFACE SYSTEM OSMOLALITY, CALCULATED 301(H) 275 - 295 mOsm/Kg INTERFACE SYSTEM CALCIUM 7.5(L) 8.4 - 10.5 mg/dL INTERFACE SYSTEM 2005 7:40 PM CDT Shante Saunders MD CHEMISTRY ORDERABLES Final Result Performing Organization Address City/[facility] de Phone Number INTERFACE SYSTEM Refer to clinic/hospital department * (ABNORMAL) DIFFERENTIAL, MANUAL (2005 7:40 PM CDT) NEUTROPHILS, SEG 51 32 - 62 % INT ERFACE SYSTEM BANDS 15 10 - 18 % INTERFACE SYSTEM LYMPHOCYTES 24(L) 26 - 36 % INTERFAC E SYSTEM MONOCYTE 5 5 - 6 % INTERFACE SYSTEM EOSINOPHILS 1 0 - 3 % INTERFAC E SYSTEM BASOPHILS 1 0 - 1 % INTERFACE SYSTEM METAMYELOCYTE 1 0 - 1 % INTERF FLOWER SYSTEM MYELOCYTES 2(H) <=1 % INTERFACE SYSTEM PLATELET EST. Normal Normal INTERF FLOWER SYSTEM RBC MORPHOLOGY Abnormal(A ) Normal INTERFACE SYSTEM ANISOCYTOSIS 1+(A) None Seen INTERFA CE SYSTEM POIKILOCYTES 2+(A) None Seen INTERFA CE SYSTEM POLYCHROMASIA 2+(A) None Seen INTERF FLOWER SYSTEM VACUOLATED NEUTROPHILS Few(A) None Seen INTERFACE SYSTEM DOHLE BODIES Present(A) None Seen INTERF FLOWER SYSTEM GIANT PLATELETS Few(A) INTE RFACE SYSTEM 2005 7:40 PM CDT Shante Saunders MD HEMATOLOGY ORDERABLES COM F inal Result INTERFACE SYSTEM Refer to clinic/hospital department * (ABNORMAL) CBC WITH DIFFERENTIAL (2005 7:40 PM CDT) Pathologist [facility] WBC 7.4(L) 9.0 - 30.0 K/ul INTERFACE SYSTEM RBC 3.50(L) 4.10 - 5.10 Mil/ul INTERFACE SYSTEM HEMOGLOBIN 12.1(L) 13.5 - 19.5 g/dL INTERFACE SYSTEM HEMATOCRIT 34.8(L) 42.0 - 60.0 % INTERFACE SYSTEM MCV 99.4(L) 107.0 - 119.0 Fl INTERFACE SYSTEM MCH 34.6 31.0 - 37.0 pg INTERFACE SYSTEM MCHC 34.8 31.0 - 37.0 g/dL INTERFACE SYSTEM RDW 19.5(H) 11.0 - 14.5 % INTERFACE SYSTEM PLATELETS 213 140 - 440 K/ul INTERFACE SYSTEM MPV 10.2 8.9 - 12.8 Fl INTERFACE SYSTEM NEUTROPHILS 67.9 42.2 - 75.2 % INTERFACE SYSTEM LYMPHOCYTES 25.9(L) 26.0 - 36.8 % INTERFACE SYSTEM MONOCYTES 5.6 5.0 - 6.0 % INTERFACE SYSTEM EOSINOPHILS 0.3 0.0 - 7.0 % INTERFACE SYSTEM BASOPHILS 0.3 0.0 - 1.0 % INTERFACE SYSTEM NEUTROPHIL ABSOLUTE 5.0 2.0 - 8.0 K/uL INTERFACE SYSTEM LYMPHOCYTE ABSOLUTE 1.9 1.2 - 4.0 K/ul INTERFACE SYSTEM MONOCYTE ABSOLUTE 0.4 0.1 - 0.6 K/ul INTERFACE SYSTEM EOSINOPHIL ABSOLUTE 0.0 0.0 - 0.7 K/ul INTERFACE SYSTEM BASOPHILS ABSOLUTE 0.0 0.0 - 0.2 K/ul INTERFACE SYSTEM NRBC 2(H) <=1 INTERFACE SYSTEM Comment:WBC CORRECTED FOR NR BC 2005 7:40 PM CDT Shante Saunders MD HEMATOLOGY ORDERABLES Final Result INTERFACE SYSTEM Refer to clinic/hospital department * (ABNORMAL) POC ISTAT 8 (2005 6:05 PM CDT) SPECIMEN TYPE Arterial INTERF FLOWER SYSTEM Comment: Pulse OX: 97 Hemoglobin calculated from Hematocrit result FIO2 25 INTERFACE SYSTEM PH 7.36 7.35 - 7.45 Unit INTERFACE SYSTEM PH TEMP CORRECT 7.36 7.35 - 7.45 Unit INTERFACE SYSTEM PCO2 POC 41 35 - 45 mmHg INTERFACE SYSTEM PCO2 TEMP CORRECT 41 35 - 45 mmHg INTERFACE SYSTEM PO2 59(L) 80 - 105 mmHg INTERFACE SYSTEM PO2 TEMP CORRECT 59(L) 80 - 105 mmHg INTERFACE SYSTEM HCO3 (CALC) POC 23.1 22.0 - 26.0 mmol/l INTERFACE SYSTEM BASE EXCESS -2 -2 - 3 mmol/l INTERFACE SYSTEM HEMOGLOBIN POC 11.6 3 g/dL 13.5 - 18.0 g/dL INTERFACE SYSTEM HEMATOCRIT ABG 34(L) 38 - 51 % INTER FACE SYSTEM O2 SATURATION 89(L) 95 - 98 % INTERF FLOWER SYSTEM TCO2 (CALC) POC 24 23 - 27 mmol/l INTERFACE SYSTEM SODIUM 139 138 - 146 mEq/L INTERFACE SYSTEM POTASSIUM 4.3 3.5 - 4.9 mEq/L INTERFACE SYSTEM CALCIUM IONIZED 1.15 1.08 - 1.28 mmol/l INTERFACE SYSTEM GLUCOSE 127(H) 50 - 80 mg/dL INTERFACE SYSTEM 2005 6:05 PM CDT us Shante Saunders MD ABG ORDERABLES Final Resul t INTERFACE SYSTEM Refer to clinic/hospital department * (ABNORMAL) POC ISTAT 8 (2005 3:10 PM CDT) SPECIMEN TYPE Arterial INTERF FLOWER SYSTEM Comment: Pulse OX: 97 Hemoglobin calculated from Hematocrit result FIO2 22 INTERFACE SYSTEM PH 7.38 7.35 - 7.45 Unit INTERFACE SYSTEM PH TEMP CORRECT 7.38 7.35 - 7.45 Unit INTERFACE SYSTEM PCO2 POC 40 35 - 45 mmHg INTERFACE SYSTEM PCO2 TEMP CORRECT 40 35 - 45 mmHg INTERFACE SYSTEM PO2 58(L) 80 - 105 mmHg INTERFACE SYSTEM PO2 TEMP CORRECT 58(L) 80 - 105 mmHg INTERFACE SYSTEM HCO3 (CALC) POC 23.5 22.0 - 26.0 mmol/l INTERFACE SYSTEM BASE EXCESS -2 -2 - 3 mmol/l INTERFACE SYSTEM HEMOGLOBIN POC 12.2 3 g/dL 13.5 - 18.0 g/dL INTERFACE SYSTEM HEMATOCRIT ABG 36(L) 38 - 51 % INTER FACE SYSTEM O2 SATURATION 89(L) 95 - 98 % INTERF FLOWER SYSTEM TCO2 (CALC) POC 25 23 - 27 mmol/l INTERFACE SYSTEM SODIUM 137(L) 138 - 146 mEq/L INTERFACE SYSTEM POTASSIUM 4.1 3.5 - 4.9 mEq/L INTERFACE SYSTEM CALCIUM IONIZED 1.06(L) 1.08 - 1.28 mmol/l INTERFACE SYSTEM GLUCOSE 141(H) 50 - 80 mg/dL INTERFACE SYSTEM 2005 3:10 PM CDT Shante Saunders MD ABG ORDERABLES Final Resul t Performing Organization Address City/[facility] de Phone Number INTERFACE SYSTEM Refer to clinic/hospital department * BILIRUBIN, TOTAL AND DIRECT (2005 12:57 PM CDT) BILIRUBIN TOTAL 4.9 0.5 - 10.0 mg/dL INTERFACE SYSTEM BILIRUBIN DIRECT 0.5 0.0 - 1.0 mg/dL INTERFACE SYSTEM 2005 12:5 7 PM CDT Shante Saunders MD CHEMISTRY ORDERABLES Final Result Performing Organization Address [facility] Phone Number INTERFACE SYSTEM Refer to clinic/hospital department * (ABNORMAL) BASIC METABOLIC PANEL (2005 12:57 PM CDT) GLUCOSE 128(H) 50 - 80 mg/dL INTERFACE SYSTEM BUN 16 9 - 20 mg/dL INTERFACE SYSTEM CREATININE 0.6 0.2 - 0.7 mg/dL INTERFACE SYSTEM SODIUM 141 136 - 145 mEq/L INTERFACE SYSTEM POTASSIUM 4.3 3.5 - 5.0 mEq/L INTERFACE SYSTEM CHLORIDE 107 95 - 110 mEq/L INTERFACE SYSTEM CO2 23 22 - 32 mmol/l INTERFACE SYSTEM ANION GAP 15 9 - 20 mEq/L INTERFACE SYSTEM OSMOLALITY, CALCULATED 293 275 - 295 mOsm/Kg INTERFACE SYSTEM CALCIUM 7.2(L) 8.4 - 10.5 mg/dL INTERFACE SYSTEM 2005 12:5 7 PM CDT Shante Saunders MD CHEMISTRY ORDERABLES Final Result INTERFACE SYSTEM Refer to clinic/hospital department * (ABNORMAL) POC ISTAT 8 (2005 12:56 PM CDT) SPECIMEN TYPE Arterial INTERF FLOWER SYSTEM Comment: Pulse OX: 97 Hemoglobin calculated from Hematocrit result FIO2 21 INTERFACE SYSTEM PH 7.41 7.35 - 7.45 Unit INTERFACE SYSTEM PH TEMP CORRECT 7.41 7.35 - 7.45 Unit INTERFACE SYSTEM PCO2 POC 37 35 - 45 mmHg INTERFACE SYSTEM PCO2 TEMP CORRECT 37 35 - 45 mmHg INTERFACE SYSTEM PO2 70(L) 80 - 105 mmHg INTERFACE SYSTEM PO2 TEMP CORRECT 70(L) 80 - 105 mmHg INTERFACE SYSTEM HCO3 (CALC) POC 22.9 22.0 - 26.0 mmol/l INTERFACE SYSTEM BASE EXCESS -2 -2 - 3 mmol/l INTERFACE SYSTEM HEMOGLOBIN POC 12.6 3 g/dL 13.5 - 18.0 g/dL INTERFACE SYSTEM HEMATOCRIT ABG 37(L) 38 - 51 % INTER FACE SYSTEM O2 SATURATION 94(L) 95 - 98 % INTERF FLOWER SYSTEM TCO2 (CALC) POC 24 23 - 27 mmol/l INTERFACE SYSTEM SODIUM 138 138 - 146 mEq/L INTERFACE SYSTEM POTASSIUM 4.1 3.5 - 4.9 mEq/L INTERFACE SYSTEM CALCIUM IONIZED 1.11 1.08 - 1.28 mmol/l INTERFACE SYSTEM GLUCOSE 124(H) 50 - 80 mg/dL INTERFACE SYSTEM 2005 12:5 6 PM CDT Shante Saunders MD ABG ORDERABLES Final Resul t INTERFACE SYSTEM Refer to clinic/hospital department * (ABNORMAL) DIFFERENTIAL, MANUAL (2005 12:56 PM CDT) NEUTROPHILS, SEG 58 32 - 62 % INT ERFACE SYSTEM BANDS 2(L) 10 - 18 % INTERFACE SYSTEM LYMPHOCYTES 24(L) 26 - 36 % INTERFAC E SYSTEM MONOCYTE 15(H) 5 - 6 % INTERFACE SYSTEM EOSINOPHILS 1 0 - 3 % INTERFAC E SYSTEM PLATELET EST. Normal Normal INTERF FLOWER SYSTEM RBC MORPHOLOGY Abnormal(A ) Normal INTERFACE SYSTEM ANISOCYTOSIS 1+(A) None Seen INTERFA CE SYSTEM POIKILOCYTES 1+(A) None Seen INTERFA CE SYSTEM POLYCHROMASIA 1+(A) None Seen INTERF FLOWER SYSTEM TOXIC GRANULATION 1+(A) None Seen IN TERFACE SYSTEM VACUOLATED NEUTROPHILS Few(A) None Seen INTERFACE SYSTEM 2005 12:5 6 PM CDT Shante Saunders MD HEMATOLOGY ORDERABLES COM F inal Result INTERFACE SYSTEM Refer to clinic/hospital department * (ABNORMAL) CBC WITH DIFFERENTIAL (2005 12:56 PM CDT) WBC 5.0(L) 9.0 - 30.0 K/ul INTERFACE SYSTEM Comment: WBC Corrected for Nucleated RBC'S RBC 3.75(L) 4.10 - 5.10 Mil/ul INTERFACE SYSTEM HEMOGLOBIN 13.2(L) 13.5 - 19.5 g/dL INTERFACE SYSTEM HEMATOCRIT 37.6(L) 42.0 - 60.0 % INTERFACE SYSTEM MCV 100.3(L) 107.0 - 119.0 Fl INTERFACE SYSTEM MCH 35.2 31.0 - 37.0 pg INTERFACE SYSTEM MCHC 35.1 31.0 - 37.0 g/dL INTERFACE SYSTEM RDW 19.2(H) 11.0 - 14.5 % INTERFACE SYSTEM PLATELETS 169 140 - 440 K/ul INTERFACE SYSTEM MPV 9.7 8.9 - 12.8 Fl INTERFACE SYSTEM NRBC 3(H) <=1 INTERFACE SYSTEM 2005 12:5 6 PM CDT Shante Saunders MD HEMATOLOGY ORDERABLES Final Result INTERFACE SYSTEM Refer to clinic/hospital department * (ABNORMAL) POC ISTAT 8 (2005 11:40 AM CDT) SPECIMEN TYPE Arterial INTERF FLOWER SYSTEM Comment: Pulse OX: 96 Hemoglobin calculated from Hematocrit result FIO2 21 INTERFACE SYSTEM PH 7.34(L) 7.35 - 7.45 Unit INTERFACE SYSTEM PH TEMP CORRECT 7.34(L) 7.35 - 7.45 Unit INTERFACE SYSTEM PCO2 POC 37 35 - 45 mmHg INTERFACE SYSTEM PCO2 TEMP CORRECT 37 35 - 45 mmHg INTERFACE SYSTEM PO2 68(L) 80 - 105 mmHg INTERFACE SYSTEM PO2 TEMP CORRECT 68(L) 80 - 105 mmHg INTERFACE SYSTEM HCO3 (CALC) POC 19.9(L) 22.0 - 26.0 mmol/l INTERFACE SYSTEM BASE EXCESS -6(L) -2 - 3 mmol/l INTERFACE SYSTEM HEMOGLOBIN POC 13.3 3 g/dL 13.5 - 18.0 g/dL INTERFACE SYSTEM HEMATOCRIT ABG 39 38 - 51 % INTER FACE SYSTEM O2 SATURATION 92(L) 95 - 98 % INTERF FLOWER SYSTEM TCO2 (CALC) POC 21(L) 23 - 27 mmol/l INTERFACE SYSTEM SODIUM 135(L) 138 - 146 mEq/L INTERFACE SYSTEM POTASSIUM 4.2 3.5 - 4.9 mEq/L INTERFACE SYSTEM CALCIUM IONIZED 1.13 1.08 - 1.28 mmol/l INTERFACE SYSTEM GLUCOSE 118(H) 50 - 80 mg/dL INTERFACE SYSTEM 2005 11:4 0 AM CDT us Shante Saunders MD ABG ORDERABLES Final Resul t INTERFACE SYSTEM Refer to clinic/hospital department * (ABNORMAL) POC ISTAT 8 (2005 9:50 AM CDT) SPECIMEN TYPE Arterial INTERF FLOWER SYSTEM Comment: Pulse OX: 100 Hemoglobin calculated from Hematocrit result FIO2 21 INTERFACE SYSTEM PH 7.37 7.35 - 7.45 Unit INTERFACE SYSTEM PH TEMP CORRECT 7.37 7.35 - 7.45 Unit INTERFACE SYSTEM PCO2 POC 38 35 - 45 mmHg INTERFACE SYSTEM PCO2 TEMP CORRECT 38 35 - 45 mmHg INTERFACE SYSTEM PO2 75(L) 80 - 105 mmHg INTERFACE SYSTEM PO2 TEMP CORRECT 75(L) 80 - 105 mmHg INTERFACE SYSTEM HCO3 (CALC) POC 21.8(L) 22.0 - 26.0 mmol/l INTERFACE SYSTEM BASE EXCESS -3(L) -2 - 3 mmol/l INTERFACE SYSTEM HEMOGLOBIN POC 13.6 3 g/dL 13.5 - 18.0 g/dL INTERFACE SYSTEM HEMATOCRIT ABG 40 38 - 51 % INTER FACE SYSTEM O2 SATURATION 95 95 - 98 % INTERF FLOWER SYSTEM TCO2 (CALC) POC 23 23 - 27 mmol/l INTERFACE SYSTEM SODIUM 135(L) 138 - 146 mEq/L INTERFACE SYSTEM POTASSIUM 4.1 3.5 - 4.9 mEq/L INTERFACE SYSTEM CALCIUM IONIZED 1.16 1.08 - 1.28 mmol/l INTERFACE SYSTEM GLUCOSE 94(H) 50 - 80 mg/dL INTERFACE SYSTEM 2005 9:50 AM CDT Shante Saunders MD ABG ORDERABLES Final Resul t INTERFACE SYSTEM Refer to clinic/hospital department * (ABNORMAL) POC ISTAT 8 (2005 8:48 AM CDT) SPECIMEN TYPE Arterial INTERF FLOWER SYSTEM Comment: Pulse OX: 100 Hemoglobin calculated from Hematocrit result FIO2 21 INTERFACE SYSTEM PH 7.38 7.35 - 7.45 Unit INTERFACE SYSTEM PH TEMP CORRECT 7.38 7.35 - 7.45 Unit INTERFACE SYSTEM PCO2 POC 34(L) 35 - 45 mmHg INTERFACE SYSTEM PCO2 TEMP CORRECT 34(L) 35 - 45 mmHg INTERFACE SYSTEM PO2 72(L) 80 - 105 mmHg INTERFACE SYSTEM PO2 TEMP CORRECT 72(L) 80 - 105 mmHg INTERFACE SYSTEM HCO3 (CALC) POC 20.1(L) 22.0 - 26.0 mmol/l INTERFACE SYSTEM BASE EXCESS -5(L) -2 - 3 mmol/l INTERFACE SYSTEM HEMOGLOBIN POC 13.6 3 g/dL 13.5 - 18.0 g/dL INTERFACE SYSTEM HEMATOCRIT ABG 40 38 - 51 % INTER FACE SYSTEM O2 SATURATION 94(L) 95 - 98 % INTERF FLOWER SYSTEM TCO2 (CALC) POC 21(L) 23 - 27 mmol/l INTERFACE SYSTEM SODIUM 134(L) 138 - 146 mEq/L INTERFACE SYSTEM POTASSIUM 3.9 3.5 - 4.9 mEq/L INTERFACE SYSTEM CALCIUM IONIZED 1.30(H) 1.08 - 1.28 mmol/l INTERFACE SYSTEM GLUCOSE 98(H) 50 - 80 mg/dL INTERFACE SYSTEM 2005 8:48 AM CDT Shante Saunders MD ABG ORDERABLES Final Resul t INTERFACE SYSTEM Refer to clinic/hospital department * (ABNORMAL) POC ISTAT 8 (2005 7:25 AM CDT) SPECIMEN TYPE Arterial INTERF FLOWER SYSTEM Comment: Critical result performed at the point of care. Pulse OX: 100 Hemoglobin calculated from Hematocrit result FIO2 21 INTERFACE SYSTEM PH 7.63(AA) 7.35 - 7.45 Unit INTERFACE SYSTEM PH TEMP CORRECT 7.63(AA) 7.35 - 7.45 Unit INTERFACE SYSTEM PCO2 POC 17(AA) 35 - 45 mmHg INTERFACE SYSTEM PCO2 TEMP CORRECT 17(AA) 35 - 45 mmHg INTERFACE SYSTEM PO2 96 80 - 105 mmHg INTERFACE SYSTEM PO2 TEMP CORRECT 96 80 - 105 mmHg INTERFACE SYSTEM HCO3 (CALC) POC 17.8(L) 22.0 - 26.0 mmol/l INTERFACE SYSTEM BASE EXCESS -3(L) -2 - 3 mmol/l INTERFACE SYSTEM HEMOGLOBIN POC 13.6 3 g/dL 13.5 - 18.0 g/dL INTERFACE SYSTEM HEMATOCRIT ABG 40 38 - 51 % INTER FACE SYSTEM O2 SATURATION 99(H) 95 - 98 % INTERF FLOWER SYSTEM TCO2 (CALC) POC 18(L) 23 - 27 mmol/l INTERFACE SYSTEM SODIUM 133(L) 138 - 146 mEq/L INTERFACE SYSTEM POTASSIUM 4.2 3.5 - 4.9 mEq/L INTERFACE SYSTEM CALCIUM IONIZED 1.03(L) 1.08 - 1.28 mmol/l INTERFACE SYSTEM GLUCOSE 103(H) 50 - 80 mg/dL INTERFACE SYSTEM 2005 7:25 AM CDT Shante Saunders MD ABG ORDERABLES Final Resul t INTERFACE SYSTEM Refer to clinic/hospital department * SCREEN, NEOGEN (2005 6:03 AM CDT) SCREEN, NEOGEN Sent to Reference Lab INTERFACE SYSTEM 2005 6:03 AM CDT Shante Saunders MD CHEMISTRY ORDERABLES Final Result Performing Organization Address [facility] Phone Number INTERFACE SYSTEM Refer to clinic/hospital department * METABOLIC SCREEN (2005 6:03 AM CDT) PKU Sent to Reference Lab INTERFACE SYSTEM 2005 6:03 AM CDT Shante Saunders MD CHEMISTRY ORDERABLES Final Result Performing Organization Address [facility] Phone Number INTERFACE SYSTEM Refer to clinic/hospital department * (ABNORMAL) DIFFERENTIAL, MANUAL (2005 5:02 AM CDT) NEUTROPHILS, SEG 65(H) 32 - 62 % INT ERFACE SYSTEM BANDS 5(L) 10 - 18 % INTERFACE SYSTEM LYMPHOCYTES 23(L) 26 - 36 % INTERFAC E SYSTEM MONOCYTE 5 5 - 6 % INTERFACE SYSTEM BASOPHILS 1 0 - 1 % INTERFACE SYSTEM METAMYELOCYTE 1 0 - 1 % INTERF FLOWER SYSTEM PLATELET EST. Normal Normal INTERF FLOWER SYSTEM RBC MORPHOLOGY Abnormal(A ) Normal INTERFACE SYSTEM ANISOCYTOSIS 1+(A) None Seen INTERFA CE SYSTEM POIKILOCYTES 1+(A) None Seen INTERFA CE SYSTEM POLYCHROMASIA 1+(A) None Seen INTERF FLOWER SYSTEM 2005 5:02 AM CDT Shante Saunders MD HEMATOLOGY ORDERABLES COM F inal Result Performing Organization Address [facility] Phone Number INTERFACE SYSTEM Refer to clinic/hospital department * (ABNORMAL) BASIC METABOLIC PANEL (2005 5:02 AM CDT) GLUCOSE 83(H) 50 - 80 mg/dL INTERFACE SYSTEM BUN 13 9 - 20 mg/dL INTERFACE SYSTEM CREATININE 0.5 0.2 - 0.7 mg/dL INTERFACE SYSTEM SODIUM 129(L) 136 - 145 mEq/L INTERFACE SYSTEM POTASSIUM 3.9 3.5 - 5.0 mEq/L INTERFACE SYSTEM CHLORIDE 101 95 - 110 mEq/L INTERFACE SYSTEM CO2 16(L) 22 - 32 mmol/l INTERFACE SYSTEM ANION GAP 16 9 - 20 mEq/L INTERFACE SYSTEM OSMOLALITY, CALCULATED 266(L) 275 - 295 mOsm/Kg INTERFACE SYSTEM CALCIUM 7.1(L) 8.4 - 10.5 mg/dL INTERFACE SYSTEM 2005 5:02 AM CDT Shante Saunders MD CHEMISTRY ORDERABLES Final Result Performing Organization Address [facility] Phone Number INTERFACE SYSTEM Refer to clinic/hospital department * (ABNORMAL) CBC WITH DIFFERENTIAL (2005 5:02 AM CDT) WBC 7.8(L) 9.0 - 30.0 K/ul INTERFACE SYSTEM Comment: WBC Corrected for Nucleated RBC'S RBC 4.09(L) 4.10 - 5.10 Mil/ul INTERFACE SYSTEM HEMOGLOBIN 14.3 13.5 - 19.5 g/dL INTERFACE SYSTEM HEMATOCRIT 40.8(L) 42.0 - 60.0 % INTERFACE SYSTEM MCV 99.8(L) 107.0 - 119.0 Fl INTERFACE SYSTEM MCH 35.0 31.0 - 37.0 pg INTERFACE SYSTEM MCHC 35.0 31.0 - 37.0 g/dL INTERFACE SYSTEM RDW 17.9(H) 11.0 - 14.5 % INTERFACE SYSTEM PLATELETS 206 140 - 440 K/ul INTERFACE SYSTEM MPV 10.0 8.9 - 12.8 Fl INTERFACE SYSTEM NRBC 3(H) <=1 INTERFACE SYSTEM 2005 5:02 AM CDT Shante Saunders MD HEMATOLOGY ORDERABLES Final Result Performing Organization Address [facility] Phone Number INTERFACE SYSTEM Refer to clinic/hospital department * (ABNORMAL) POC ISTAT 8 (2005 4:56 AM CDT) SPECIMEN TYPE Arterial INTERF FLOWER SYSTEM Comment: Pulse OX: 100 Hemoglobin calculated from Hematocrit result FIO2 21 INTERFACE SYSTEM PH 7.44 7.35 - 7.45 Unit INTERFACE SYSTEM PH TEMP CORRECT 7.44 7.35 - 7.45 Unit INTERFACE SYSTEM PCO2 POC 26(L) 35 - 45 mmHg INTERFACE SYSTEM PCO2 TEMP CORRECT 26(L) 35 - 45 mmHg INTERFACE SYSTEM PO2 95 80 - 105 mmHg INTERFACE SYSTEM PO2 TEMP CORRECT 95 80 - 105 mmHg INTERFACE SYSTEM HCO3 (CALC) POC 18.1(L) 22.0 - 26.0 mmol/l INTERFACE SYSTEM BASE EXCESS -6(L) -2 - 3 mmol/l INTERFACE SYSTEM HEMOGLOBIN POC 14.6 3 g/dL 13.5 - 18.0 g/dL INTERFACE SYSTEM HEMATOCRIT ABG 43 38 - 51 % INTER FACE SYSTEM O2 SATURATION 98 95 - 98 % INTERF FLOWER SYSTEM TCO2 (CALC) POC 19(L) 23 - 27 mmol/l INTERFACE SYSTEM SODIUM 132(L) 138 - 146 mEq/L INTERFACE SYSTEM POTASSIUM 4.2 3.5 - 4.9 mEq/L INTERFACE SYSTEM CALCIUM IONIZED 1.06(L) 1.08 - 1.28 mmol/l INTERFACE SYSTEM GLUCOSE 89(H) 50 - 80 mg/dL INTERFACE SYSTEM 2005 4:56 AM CDT us Shante Saunders MD ABG ORDERABLES Final Resul t INTERFACE SYSTEM Refer to clinic/hospital department * (ABNORMAL) POC ISTAT 8 (2005 2:56 AM CDT) SPECIMEN TYPE Arterial INTERF FLOWER SYSTEM Comment: Pulse OX: 99 Hemoglobin calculated from Hematocrit result FIO2 25 INTERFACE SYSTEM PH 7.42 7.35 - 7.45 Unit INTERFACE SYSTEM PH TEMP CORRECT 7.42 7.35 - 7.45 Unit INTERFACE SYSTEM PCO2 POC 30(L) 35 - 45 mmHg INTERFACE SYSTEM PCO2 TEMP CORRECT 30(L) 35 - 45 mmHg INTERFACE SYSTEM PO2 107(H) 80 - 105 mmHg INTERFACE SYSTEM PO2 TEMP CORRECT 107(H) 80 - 105 mmHg INTERFACE SYSTEM HCO3 (CALC) POC 19.4(L) 22.0 - 26.0 mmol/l INTERFACE SYSTEM BASE EXCESS -5(L) -2 - 3 mmol/l INTERFACE SYSTEM HEMOGLOBIN POC 12.2 3 g/dL 13.5 - 18.0 g/dL INTERFACE SYSTEM HEMATOCRIT ABG 36(L) 38 - 51 % INTER FACE SYSTEM O2 SATURATION 98 95 - 98 % INTERF FLOWER SYSTEM TCO2 (CALC) POC 20(L) 23 - 27 mmol/l INTERFACE SYSTEM SODIUM 130(L) 138 - 146 mEq/L INTERFACE SYSTEM POTASSIUM 4.0 3.5 - 4.9 mEq/L INTERFACE SYSTEM CALCIUM IONIZED 1.07(L) 1.08 - 1.28 mmol/l INTERFACE SYSTEM GLUCOSE 109(H) 50 - 80 mg/dL INTERFACE SYSTEM 2005 2:56 AM CDT Shante Saunders MD ABG ORDERABLES Final Resul t Performing Organization Address [facility] Phone Number INTERFACE SYSTEM Refer to clinic/hospital department * (ABNORMAL) POC ISTAT 8 (2005 1:03 AM CDT) SPECIMEN TYPE Arterial INTERF FLOWER SYSTEM Comment: Pulse OX: 100 Hemoglobin calculated from Hematocrit result FIO2 30 INTERFACE SYSTEM PH 7.40 7.35 - 7.45 Unit INTERFACE SYSTEM PH TEMP CORRECT 7.40 7.35 - 7.45 Unit INTERFACE SYSTEM PCO2 POC 36 35 - 45 mmHg INTERFACE SYSTEM PCO2 TEMP CORRECT 36 35 - 45 mmHg INTERFACE SYSTEM PO2 135(H) 80 - 105 mmHg INTERFACE SYSTEM PO2 TEMP CORRECT 135(H) 80 - 105 mmHg INTERFACE SYSTEM HCO3 (CALC) POC 21.8(L) 22.0 - 26.0 mmol/l INTERFACE SYSTEM BASE EXCESS -3(L) -2 - 3 mmol/l INTERFACE SYSTEM HEMOGLOBIN POC 10.2 3 g/dL 13.5 - 18.0 g/dL INTERFACE SYSTEM HEMATOCRIT ABG 30(L) 38 - 51 % INTER FACE SYSTEM O2 SATURATION 99(H) 95 - 98 % INTERF FLOWER SYSTEM TCO2 (CALC) POC 23 23 - 27 mmol/l INTERFACE SYSTEM SODIUM 135(L) 138 - 146 mEq/L INTERFACE SYSTEM POTASSIUM 4.2 3.5 - 4.9 mEq/L INTERFACE SYSTEM CALCIUM IONIZED 1.14 1.08 - 1.28 mmol/l INTERFACE SYSTEM GLUCOSE 83(H) 50 - 80 mg/dL INTERFACE SYSTEM 2005 1:03 AM CDT Shante Saunders MD ABG ORDERABLES Final Resul t Performing Organization Address [facility] Co de Phone Number INTERFACE SYSTEM Refer to clinic/hospital department * (ABNORMAL) POC ISTAT 8 (2005 11:12 PM CDT) SPECIMEN TYPE Arterial INTERF FLOWER SYSTEM Comment: Critical result performed at the point of care. Tidal volume: 100 Hemoglobin calculated from Hematocrit result FIO2 33 INTERFACE SYSTEM PH 7.34(L) 7.35 - 7.45 Unit INTERFACE SYSTEM PH TEMP CORRECT 7.34(L) 7.35 - 7.45 Unit INTERFACE SYSTEM PCO2 POC 41 35 - 45 mmHg INTERFACE SYSTEM PCO2 TEMP CORRECT 41 35 - 45 mmHg INTERFACE SYSTEM PO2 147(H) 80 - 105 mmHg INTERFACE SYSTEM PO2 TEMP CORRECT 147(H) 80 - 105 mmHg INTERFACE SYSTEM HCO3 (CALC) POC 21.9(L) 22.0 - 26.0 mmol/l INTERFACE SYSTEM BASE EXCESS -4(L) -2 - 3 mmol/l INTERFACE SYSTEM HEMOGLOBIN POC 11.6 3 g/dL 13.5 - 18.0 g/dL INTERFACE SYSTEM HEMATOCRIT ABG 34(L) 38 - 51 % INTER FACE SYSTEM O2 SATURATION 99(H) 95 - 98 % INTERF FLOWER SYSTEM TCO2 (CALC) POC 23 23 - 27 mmol/l INTERFACE SYSTEM SODIUM 133(L) 138 - 146 mEq/L INTERFACE SYSTEM POTASSIUM 4.0 3.5 - 4.9 mEq/L INTERFACE SYSTEM CALCIUM IONIZED 1.21 1.08 - 1.28 mmol/l INTERFACE SYSTEM GLUCOSE 41(AA) 50 - 80 mg/dL INTERFACE SYSTEM 2005 11:1 2 PM CDT Shante Saunders MD ABG ORDERABLES Final Resul t Performing Organization Address [place]/[facility] Phone Number INTERFACE SYSTEM Refer to clinic/hospital department * POC GLUCOSE (2005 10:49 PM CDT) GLUCOSE POC 52 50 - 80 mg/dL INTERFACE SYSTEM 2005 10:4 9 PM CDT Shante Saunders MD POINT OF CARE TESTING Final Result Performing Organization Address [facility] Co de Phone Number INTERFACE SYSTEM Refer to clinic/hospital department * (ABNORMAL) MAGNESIUM LEVEL (2005 10:30 PM CDT) MAGNESIUM 2.8(H) 1.7 - 2.4 mg/dL INTERFACE SYSTEM Comment: As of 05 the [facility] has changed testing methods. The new reference range is 1.7-2.4 The old referance range was 1.6-2.3 2005 10:3 0 PM CDT Shante Saunders MD CHEMISTRY ORDERABLES Final Result Performing Organization Address [place]/[facility] Co de Phone Number INTERFACE SYSTEM Refer to clinic/hospital department * (ABNORMAL) BASIC METABOLIC PANEL (2005 10:30 PM CDT) Pathologist [facility] GLUCOSE 26(AA) 50 - 80 mg/dL INTERFACE SYSTEM Comment: Potentially critical/toxic glucose called by da to shauna, with verbal repeat, at 2005 11:10 PM. BUN 8(L) 9 - 20 mg/dL INTERFACE SYSTEM CREATININE 0.4 0.2 - 0.7 mg/dL INTERFACE SYSTEM SODIUM 134(L) 136 - 145 mEq/L INTERFACE SYSTEM POTASSIUM 4.1 3.5 - 5.0 mEq/L INTERFACE SYSTEM CHLORIDE 106 95 - 110 mEq/L INTERFACE SYSTEM CO2 21(L) 22 - 32 mmol/l INTERFACE SYSTEM ANION GAP 11 9 - 20 mEq/L INTERFACE SYSTEM OSMOLALITY, CALCULATED 271(L) 275 - 295 mOsm/Kg INTERFACE SYSTEM CALCIUM 8.5 8.4 - 10.5 mg/dL INTERFACE SYSTEM 2005 10:3 0 PM CDT Shante Saunders MD CHEMISTRY ORDERABLES Final Result Performing Organization Address [facility] de Phone Number INTERFACE SYSTEM Refer to clinic/hospital department * (ABNORMAL) DIFFERENTIAL, MANUAL (2005 10:30 PM CDT) NEUTROPHILS, SEG 40 32 - 62 % INT ERFACE SYSTEM BANDS 3(L) 10 - 18 % INTERFACE SYSTEM LYMPHOCYTES 47(H) 26 - 36 % INTERFAC E SYSTEM MONOCYTE 8(H) 5 - 6 % INTERFACE SYSTEM EOSINOPHILS 1 0 - 3 % INTERFAC E SYSTEM BASOPHILS 1 0 - 1 % INTERFACE SYSTEM PLATELET EST. Normal Normal INTERF FLOWER SYSTEM RBC MORPHOLOGY Abnormal(A ) Normal INTERFACE SYSTEM ANISOCYTOSIS 1+(A) None Seen INTERFA CE SYSTEM POLYCHROMASIA 2+(A) None Seen INTERF FLOWER SYSTEM 2005 10:3 0 PM CDT us Shante Saunders MD HEMATOLOGY ORDERABLES COM F inal Result INTERFACE SYSTEM Refer to clinic/hospital department * (ABNORMAL) CBC WITH DIFFERENTIAL (2005 10:30 PM CDT) WBC 6.1(L) 9.0 - 30.0 K/ul INTERFACE SYSTEM Comment: WBC Corrected for Nucleated RBC'S RBC 3.26(L) 4.10 - 5.10 Mil/ul INTERFACE SYSTEM HEMOGLOBIN 12.2(L) 13.5 - 19.5 g/dL INTERFACE SYSTEM HEMATOCRIT 34.4(L) 42.0 - 60.0 % INTERFACE SYSTEM MCV 105.5(L) 107.0 - 119.0 Fl INTERFACE SYSTEM MCH 37.4(H) 31.0 - 37.0 pg INTERFACE SYSTEM MCHC 35.5 31.0 - 37.0 g/dL INTERFACE SYSTEM RDW 15.8(H) 11.0 - 14.5 % INTERFACE SYSTEM PLATELETS 277 140 - 440 K/ul INTERFACE SYSTEM MPV 10.1 8.9 - 12.8 Fl INTERFACE SYSTEM NEUTROPHILS 46.3 42.2 - 75.2 % INTERFACE SYSTEM LYMPHOCYTES 43.9(H) 26.0 - 36.8 % INTERFACE SYSTEM MONOCYTES 8.5(H) 5.0 - 6.0 % INTERFACE SYSTEM EOSINOPHILS 0.5 0.0 - 7.0 % INTERFACE SYSTEM BASOPHILS 0.8 0.0 - 1.0 % INTERFACE SYSTEM NEUTROPHIL ABSOLUTE 3.0 2.0 - 8.0 K/uL INTERFACE SYSTEM LYMPHOCYTE ABSOLUTE 2.8 1.2 - 4.0 K/ul INTERFACE SYSTEM MONOCYTE ABSOLUTE 0.6 0.1 - 0.6 K/ul INTERFACE SYSTEM EOSINOPHIL ABSOLUTE 0.0 0.0 - 0.7 K/ul INTERFACE SYSTEM BASOPHILS ABSOLUTE 0.1 0.0 - 0.2 K/ul INTERFACE SYSTEM NRBC 5(H) <=1 INTERFACE SYSTEM 2005 10:3 0 PM CDT us Shante Saunders MD HEMATOLOGY ORDERABLES Final Result INTERFACE SYSTEM Refer to clinic/hospital department * (ABNORMAL) POC ISTAT 8 (2005 10:11 PM CDT) SPECIMEN TYPE Arterial INTERF FLOWER SYSTEM Comment: Critical result performed at the point of care. Pulse OX: 94 Hemoglobin calculated from Hematocrit result FIO2 100 INTERFACE SYSTEM PH 7.51(H) 7.35 - 7.45 Unit INTERFACE SYSTEM PH TEMP CORRECT 7.51(H) 7.35 - 7.45 Unit INTERFACE SYSTEM PCO2 POC 29(L) 35 - 45 mmHg INTERFACE SYSTEM PCO2 TEMP CORRECT 29(L) 35 - 45 mmHg INTERFACE SYSTEM PO2 400(H) 80 - 105 mmHg INTERFACE SYSTEM PO2 TEMP CORRECT 400(H) 80 - 105 mmHg INTERFACE SYSTEM HCO3 (CALC) POC 22.6 22.0 - 26.0 mmol/l INTERFACE SYSTEM BASE EXCESS 0 -2 - 3 mmol/l INTERFACE SYSTEM HEMOGLOBIN POC 11.6 3 g/dL 13.5 - 18.0 g/dL INTERFACE SYSTEM HEMATOCRIT ABG 34(L) 38 - 51 % INTER FACE SYSTEM O2 SATURATION 100(H) 95 - 98 % INTERF FLOWER SYSTEM TCO2 (CALC) POC 23 23 - 27 mmol/l INTERFACE SYSTEM SODIUM 136(L) 138 - 146 mEq/L INTERFACE SYSTEM POTASSIUM 4.1 3.5 - 4.9 mEq/L INTERFACE SYSTEM CALCIUM IONIZED 1.19 1.08 - 1.28 mmol/l INTERFACE SYSTEM GLUCOSE 29(AA) 50 - 80 mg/dL INTERFACE SYSTEM 2005 10:1 1 PM CDT us Shante Saunders MD ABG ORDERABLES Final Resul t INTERFACE SYSTEM Refer to clinic/hospital department * MYCOPLASMA AND UREAPLASMA CULTURE (2005 9:58 PM CDT) MYCOPLASMA AND UREAPLASMA CULTURE See Sep Report INTERFACE SYSTEM 2005 9:58 PM CDT Shante Saunders MD MICROBIOLOGY - GENERAL JAYCEE HERRERA Final Result INTERFACE SYSTEM Refer to clinic/hospital department * US HEAD (2005 9:16 PM CDT) Anatomical Region Laterality Modality Head Other 2005 9:16 PM CDT Narrative 01/03/2009 7:50 AM CDT HEAD ULTRASOUND FOR: Follow-up study. The prior is 07-27-05. Ultrasound head was performed. The cystic area in the left cord is unchanged since the prior study. The 2 cysts are unchanged in size and configuration, the largest measuring 4 x 3 mm. This is located in caudothalamic groove. The periventricular white matter remains appropriate. The right germinal matrix and caudothalamic groove are unremarkable. Ventricular size is appropriate and unchanged. There is no hydrocephalus. The hyperechoic focus superior to the cerebellum noted on prior studies is again noted and unchanged in appearance. Again, this is of uncertain significance and may represent the tentorium and/or vessels. [facility] 914 Dictated By: Yvrose Cid M.D. Electronically Signed By: Yvrose Cid M.D. Date Signed: 05 [facility] Procedure Note Provider, Historical - 02/27/2009 HEAD ULTRASOUND FOR: Follow-up study. The prior is 07-27-05. Ultrasound head was performed. The cysticarea in the left cord is unchanged since the prior study. The 2 cysts are unchanged in size andconfiguration, the largest measuring 4 x 3 mm. This is located in caudothalamic groove. Theperiventricular white matter remains appropriate. The right germinal matrix and caudothalamic groove areunremarkable. Ventricular size is appropriate and unchanged. There is no hydrocephalus. The hyperechoicfocus superior to the cerebellum noted on prior studies is again noted and unchanged in appearance. Again,this is of uncertain significance and may represent the tentorium and/or vessels. [facility] 914 Dictated By: Yvrose Cid M.D. Electronically Signed By: Yvrose Cid M.D. Date Signed: 05 [facility] us Shante Saunders MD US ORDERABLES Final Resul t * US HEAD (2005 9:16 PM CDT) Anatomical Region Laterality Modality Head Other 2005 9:16 PM CDT Narrative 01/03/2009 7:49 AM CDT HEAD ULTRASOUND Sagittal and coronal imaging of the brain has been performed via the anterior fontanelle approach. Comparison is to 05. The ventricles remain normal. 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 A second 2 x 2 x 3 mm adjacent left caudothalamic groove cyst is identified. The periventricular white matter and visualized brain parenchyma are unremarkable. There is a persistent very small hypoechoic area adjacent to the superior margin of the cerebellum. IMPRESSION: 1. 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 2. Stable very small nonspecific hypoechoic area at the superior margin of the cerebellum. Low suspicion for a clinically relevant abnormality. Consider ultrasound or MRI follow up as clinically indicated. gb Dictated By: Kj Hampton M.D. Electronically Signed By: Kj Hampton M.D. Date Signed: 05 [facility] Procedure Note Provider, Historical - 02/27/2009 HEAD ULTRASOUND Sagittal and coronal imaging of the brain has been performed via theanterior fontanelle approach. Comparison is to 05. The ventricles remain normal. Stable 4 x 3 x 4 mm cyst in the leftcaudothalamic groove. A second 2 x 2 x 3 mm adjacent left caudothalamic groove cyst is identified. Theperiventricular white matter and visualized brain parenchyma are unremarkable. There is a persistent verysmall hypoechoic area adjacent to the superior margin of the cerebellum. IMPRESSION: 1. 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 2. Stable very small nonspecific hypoechoic area at the superior marginof the cerebellum. Low suspicion for a clinically relevant abnormality. Consider ultrasound orMRI follow up as clinically indicated. gb Dictated By: Kj Hampton M.D. Electronically Signed By: Kj Hampton M.D. Date Signed: 05 [facility] Shante Saunders MD ORDERABLES Final Resul t * XR CHEST PA OR AP (2005 9:16 PM CDT) Anatomical Region Laterality Modality Chest Other 2005 9:16 PM CDT Narrative 01/03/2009 7:49 AM CDT PORTABLE AP CHEST AND ABDOMEN: DATE OF EXAMINATION: 2005. Tip of left femoral venous line at the level of the right hemidiaphragm. Tip of NG tube within stomach. Stable mild pulmonary haze. Cardiac silhouette stable and grossly within normal limits. Bowel gas pattern nonspecific. IMPRESSION: As above. Correlation to study of 05. amber Dictated By: Shaunna Pearce M.D. Electronically Signed By: Shaunna Pearce M.D. Date Signed: 05 [facility] Procedure Note Provider, Historical - 02/27/2009 PORTABLE AP CHEST AND ABDOMEN: DATE OF EXAMINATION: 2005. Tip of left femoral venous line at the level of the right hemidiaphragm.Tip of NG tube within stomach. Stable mild pulmonary haze. Cardiac silhouette stable and grossly withinnormal limits. Bowel gas pattern nonspecific. IMPRESSION: As above. Correlation to study of 05. amber Dictated By: Shaunna Pearce M.D. Electronically Signed By: Shaunna Pearce M.D. Date Signed: 05 [facility] Shante Saunders MD DIAGNOSTIC IMAGING ORDERABL ES Final Result * XR CHEST PA OR AP (2005 9:16 PM CDT) Anatomical Region Laterality Modality Chest Other 2005 9:16 PM CDT Narrative 01/03/2009 7:49 AM CDT INFANT CHEST AND ABDOMEN TECHNIQUE: 40 inch AP supine. FINDINGS: NG tube is in place, the tip over the gastric fundus. Internal venous catheter is in place with the tip in the right atrium. Lung baxter show scattered patchy interstitial changes. Cardiothymic shadow is unremarkable. Comparison to previous study dated 05 shows improving aeration of the lung baxter. Cardiothymic shadow is unchanged. IMPRESSION: 1. Support tubes in place. 2. Improving aeration of lung baxter. Dictated By: Zenon Whitehead M.D. Electronically Signed By: Zenon Whitehead M.D. Date Signed: 05 [facility] Procedure Note Provider, Historical - 02/27/2009 CHEST AND ABDOMEN TECHNIQUE: 40 inch AP supine. FINDINGS: NG tube is in place, the tip over the gastric fundus. Internal venouscatheter is in place with the tip in the right atrium. Lung baxter show scattered patchy interstitialchanges. Cardiothymic shadow is unremarkable. Comparison to previous study dated 05 shows improvingaeration of the lung baxter. Cardiothymic shadow is unchanged. IMPRESSION: 1. Support tubes in place. 2. Improving aeration of lung baxter. Dictated By: Zenon Whitehead M.D. Electronically Signed By: Zenon Whitehead M.D. Date Signed: 05 [facility] Shante Saunders MD DIAGNOSTIC IMAGING ORDERABL ES Final Result * XR CHEST PA OR AP (2005 9:16 PM CDT) Anatomical Region Laterality Modality Chest Other 2005 9:16 PM CDT Narrative 01/03/2009 7:49 AM CDT 2005 - AP CHEST AND ABDOMEN AT 1222 HISTORY: Check tube placement. Comparison from 2005 at 0434. The tip of the OG tube overlies the stomach bubble. The UAC and UVC are in stable position. There appears to have been interval placement of what is probably a left femoral central line with the tip at the level of T10. There are mild bilateral perihilar infiltrates. There are multiple loops of mildly dilated gas-filled bowel. ekp / Dictated By: Kelsey Berrios M.D. Electronically Signed By: Kelsey Berrios M.D. Date Signed: 05 Procedure Note Provider, Historical - 02/27/2009 2005 - AP INFANT CHEST AND ABDOMEN AT 1222 HISTORY: Check tube placement. Comparison from 2005 at 0434. The tip of the OG tube overlies the stomach bubble. The UAC and UVC arein stable position. There appears to have been interval placement of what is probably a left femoralcentral line with the tip at the level of T10. There are mild bilateral perihilar infiltrates. Thereare multiple loops of mildly dilated gas-filled bowel. ekp / Dictated By: Kelsey Berrios M.D. Electronically Signed By: Kelsey Berrios M.D. Date Signed: 05 Shante Saunders MD DIAGNOSTIC IMAGING ORDERABL ES Final Result * XR CHEST PA OR AP (2005 9:16 PM CDT) Anatomical Region Laterality Modality Chest Other 2005 9:16 PM CDT Narrative 01/03/2009 7:49 AM CDT CHEST / ABDOMEN: DATE: 2005 at 0434 hours. INDICATION: Follow-up. COMPARISON: 2005 at 0436 hours. FINDINGS: Nasogastric tube terminates in the body of the stomach. Endotracheal tube is not definitely visualized on this examination. Umbilical venous line terminates at the superior endplate of L1. Umbilical arterial line terminates at the inferior endplate of L2. There is rotation of the patient with silhouetting of the right hemidiaphragm identified and mild perihilar haziness identified. No definite effusion or pneumothorax is seen. Nonspecific bowel gas pattern is identified. IMPRESSION: 1. Nonvisualization of endotracheal tube. 2. Development of mild perihilar haziness and silhouetting of the right lung base. 3. Repositioning of the nasogastric tube. jaw Dictated By: Troy Hancock M.D. Electronically Signed By: Troy Hancock M.D. Date Signed: 05 MORAIMA Procedure Note Provider, Historical - 02/27/2009 CHEST / ABDOMEN: DATE: 2005 at 0434 hours. INDICATION: Follow-up. COMPARISON: 2005 at 0436 hours. FINDINGS: Nasogastric tube terminates in the body of the stomach. Endotracheal tubeis not definitely visualized on this examination. Umbilical venous line terminates at the superiorendplate of L1. Umbilical arterial line terminates at the inferior endplate of L2. There isrotation of the patient with silhouetting of the right hemidiaphragm identified and mild perihilarhaziness identified. No definite effusion or pneumothorax is seen. Nonspecific bowel gas pattern isidentified. IMPRESSION: 1. Nonvisualization of endotracheal tube. 2. Development of mild perihilar haziness and silhouetting of the right lungbase. 3. Repositioning of the nasogastric tube. jaw Dictated By: Troy Hancock M.D. Electronically Signed By: Troy Hancock M.D. Date Signed: 05 MORAIMA Shante Saunders MD DIAGNOSTIC IMAGING ORDERABL ES Final Result * US HEAD (2005 9:16 PM CDT) Anatomical Region Laterality Modality Head Other 2005 9:16 PM CDT Narrative 01/03/2009 7:49 AM CDT HEAD ULTRASOUND HISTORY: Premature . Ultrasound of the head was performed. The patient has a very small cyst at the left caudothalamic groove measuring 4 mm x 2 mm in size. No germinal matrix hemorrhage is identified. Germinal matrix and caudothalamic groove is otherwise unremarkable. There is no intraventricular hemorrhage. White matter and periventricular brain parenchyma is unremarkable. The ventricular size is appropriate. There is no shift. Two sagittal images (images 41 and 42) give the appearance of a rounded hypoechoic structure superior to the cerebellum. Only one real-time collection of images is obtained through this region and it is suspected that this is simply either a confluence of vessels or a small indentation or lobule in the cerebellum which just appears prominent on these two static images. One additional follow up ultrasound is recommended to confirm that this is an incidental finding. The cystic structure in the left caudothalamic groove can also be further evaluated at that time. IMPRESSION: 1. Small cyst of left caudothalamic groove. 2. Additional follow up is recommended to further evaluate the small cystic area superior to the cerebellum felt to be a normal finding, either confluence of vessels or lobulation in the cerebellum and junction of the vermis which is exaggerated on these particular images. 3. Otherwise unremarkable exam. No hydrocephalus. No intraparenchymal hemorrhage. Germinal matrix is otherwise unremarkable. gb Dictated By: Yvrose Cid M.D. Electronically Signed By: Yvrose Cid M.D. Date Signed: 05 GRB Procedure Note Provider, Historical - 02/27/2009 HEAD ULTRASOUND HISTORY: Premature . Ultrasound of the head was performed. The patient has a verysmall cyst at the left caudothalamic groove measuring 4 mm x 2 mm in size. No germinal matrixhemorrhage is identified. Germinal matrix and caudothalamic groove is otherwise unremarkable. Thereis no intraventricular hemorrhage. White matter and periventricular brain parenchyma isunremarkable. The ventricular size is appropriate. There is no shift. Two sagittal images (images 41 and 42)give the appearance of a rounded hypoechoic structure superior to the cerebellum. Only one real-timecollection of images is obtained through this region and it is suspected that this is simply either aconfluence of vessels or a small indentation or lobule in the cerebellum which just appears prominent onthese two static images. One additional follow up ultrasound is recommended to confirm that this is anincidental finding. The cystic structure in the left caudothalamic groove can also be further evaluatedat that time. IMPRESSION: 1. Small cyst of left caudothalamic groove. 2. Additional follow up is recommended to further evaluate the smallcystic area superior to the cerebellum felt to be a normal finding, either confluence of vessels orlobulation in the cerebellum and junction of the vermis which is exaggerated on these particular images. 3. Otherwise unremarkable exam. No hydrocephalus. No intraparenchymalhemorrhage. Germinal matrix is otherwise unremarkable. gb Dictated By: Yvrose Cid M.D. Electronically Signed By: Yvrose Cid M.D. Date Signed: 05 GRB Shante Saunders MD ORDERABLES Final Resul t * XR CHEST PA OR AP (2005 9:16 PM CDT) Anatomical Region Laterality Modality Chest Other 2005 9:16 PM CDT Narrative 01/03/2009 7:49 AM CDT CHEST/ABDOMEN HISTORY: Premature . PRIOR: July 18. Single view is submitted. There is an ET tube with the tip at the clavicular heads, orogastric tube with the tip in the body of the stomach. Umbilical arterial catheter and umbilical venous catheter continue unchanged. Visualized bowel gas pattern is nonspecific. There is improvement in the lung densities compared to the prior exam. Only mild haziness persists. IMPRESSION: Lines and tubes in good position. Improving lung densities are noted. gb Dictated By: Yvrose Cid M.D. Electronically Signed By: Yvrose Cid M.D. Date Signed: 05 GRB Procedure Note Provider, Historical - 02/27/2009 CHEST/ABDOMEN HISTORY: Premature infant. PRIOR: July 18. Single view is submitted. There is an ET tube with the tip at theclavicular heads, orogastric tube with the tip in the body of the stomach. Umbilical arterial catheter andumbilical venous catheter continue unchanged. Visualized bowel gas pattern is nonspecific. There isimprovement in the lung densities compared to the prior exam. Only mild haziness persists. IMPRESSION: Lines and tubes in good position. Improving lung densities are noted. gb Dictated By: Yvrose Cid M.D. Electronically Signed By: Yvrose Cid M.D. Date Signed: 05 GRB Shante Saunders MD DIAGNOSTIC IMAGING ORDERABL ES Final Result * XR CHEST PA OR AP (2005 9:16 PM CDT) Anatomical Region Laterality Modality Chest Other 2005 9:16 PM CDT Narrative 01/03/2009 7:49 AM CDT CHEST AND ABDOMEN DATE: 2005 @2219 hours. The endotracheal tube ends 15 mm above the meena. NG tube extends into the distal stomach. Umbilical venous line ends overlying the graeme hepatis. An umbilical arterial line ends at L3. An NG tube extends into the distal stomach. Moderate diffuse haziness of the lungs is present apparently reflecting RDS. gb Dictated By: Duran Pereira M.D. Electronically Signed By: Duran Pereira M.D. Date Signed: 05 GRB Procedure Note Provider, Historical - 02/27/2009 CHEST AND ABDOMEN DATE: 2005 @2219 hours. The endotracheal tube ends 15 mm above the meena. NG tube extends intothe distal stomach. Umbilical venous line ends overlying the graeme hepatis. An umbilical arterial lineends at L3. An NG tube extends into the distal stomach. Moderate diffuse haziness of the lungs is present apparently reflectingRDS. gb Dictated By: Duran Pereira M.D. Electronically Signed By: Duran Pereira M.D. Date Signed: 05 GRB Shante Saunders MD DIAGNOSTIC IMAGING ORDERABL ES Final Result documented in this encounter Visit Diagnoses Diagnosis Single liveborn, born in hospital, delivered without mention of delivery- Primary documented in this encounter Care Teams Manager Branch Relationship Specialty Start Date End Date Edy Ramos MD NO ADDRESS ON FILE PCP - General 05 documented as of this encounter
--- OUTSIDE RECORDS SUMMARY | 2025-02-16 04:36 | XMS_ITS | Encounter Summary ---
Author Organization [facility] Address [address] [facility] [place] [address] Care Team Providers Care Shuttle Repairer Name Role Phone Edy Ramos MD Primary Care Provider Unavaila ble Encounter Details Date Type Department Care Team (Latest Contact Info) Description 2005 Outpatient Historical [facility] Edy Ramos MD NO ADDRESS ON FILE Apnea (Primary Dx) Social History Tobacco Use Types Packs/Day Years Used Date Smoking Tobacco: Never Assessed Sex and Gender Information Value Date Recorded Sex Assigned at Not on file 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
--- OUTSIDE RECORDS SUMMARY | 2025-02-16 04:36 | XMS_ITS | Clinical Summary ---
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
[2025-02-16 04:41] VITALS: BP 138/74; PULSE 81; RESP 20; TEMP 36.6; O2SAT 97; BMI 18.4
[2025-02-16 04:49] VITALS: BP 138/74; PULSE 81; RESP 20; TEMP 36.6; O2SAT 97
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
[2025-02-16 06:01] VITALS: BP 132/78; PULSE 74; RESP 14; O2SAT 96
== END 2025-02-16 06:03 | disposition home or self-care (01) ==
PROVIDERS: Emergency Provider Emergency Medicine; PCP Nurse Practitioner Family
DX: S09.8XXA Other specified injuries of head, initial encounter (principal); S01.01XA Laceration without foreign body of scalp, initial encounter; S13.9XXA Sprain of joints and ligaments of unspecified parts of neck, initial encounter; V89.2XXA Person injured in unspecified motor-vehicle accident, traffic, initial encounter
CPT/HCPCS: 12001; 70450; 99284; J9999

== ENCOUNTER 2025-02-20 20:59 | Emergency (ER) | payer MEDICAID, SELFPAY ==
--- OUTSIDE RECORDS SUMMARY | 2025-02-20 21:03 | XMS_ITS | Encounter Summary ---
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
--- OUTSIDE RECORDS SUMMARY | 2025-02-20 21:03 | XMS_ITS | Encounter Summary ---
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
--- OUTSIDE RECORDS SUMMARY | 2025-02-20 21:03 | XMS_ITS | Clinical Summary ---
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
--- OUTSIDE RECORDS SUMMARY | 2025-02-20 21:04 | XMS_ITS | Encounter Summary ---
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 Gender Identity Not on file Sexual Orientation [...] HEMATOLOGY ORDERABLES Final Result Performing Organization Address [facility] Phone Number INTERFACE SYSTEM Refer to clinic/hospital department * POC GLUCOSE (2005 3:06 PM CDT) GLUCOSE POC 91 60 - 100 mg/dL INTERFACE SYSTEM 2005 3:06 PM CDT Shante Saunders MD POINT OF CARE TESTING Final Result Performing Organization Address [facility] Phone Number INTERFACE SYSTEM Refer to clinic/hospital department * BILIRUBIN, TOTAL AND DIRECT (2005 4:20 AM CDT) BILIRUBIN TOTAL 4.7 0.5 - 10.0 mg/dL INTERFACE SYSTEM BILIRUBIN DIRECT 0.5 0.0 - 1.0 mg/dL INTERFACE SYSTEM 2005 4:20 AM CDT Shante Saunders MD CHEMISTRY ORDERABLES Final Result Performing Organization Address [facility] Phone Number INTERFACE SYSTEM Refer to clinic/hospital department * POC GLUCOSE (2005 4:10 AM CDT) GLUCOSE POC 82 60 - 100 mg/dL INTERFACE SYSTEM 2005 4:10 AM CDT Shante Saunders MD POINT OF CARE TESTING Final Result Performing Organization Address [facility] Phone Number INTERFACE SYSTEM Refer to clinic/hospital department * BILIRUBIN, TOTAL AND DIRECT (2005 4:11 AM CDT) BILIRUBIN TOTAL 6.2 0.5 - 10.0 mg/dL INTERFACE SYSTEM BILIRUBIN DIRECT 0.5 0.0 - 1.0 mg/dL INTERFACE SYSTEM 2005 4:11 AM CDT Shante Saunders MD CHEMISTRY ORDERABLES Final Result Performing Organization Address [facility] Phone Number INTERFACE SYSTEM Refer to clinic/hospital [...] INTERFACE SYSTEM Comment: As of 05 the [facility] has changed testing methods. The new reference range is 1.7-2.4 The old referance range was 1.6-2.3 2005 4:11 AM CDT Shante Saunders MD CHEMISTRY ORDERABLES Final Result Performing Organization Address [facility] Phone Number INTERFACE SYSTEM Refer to clinic/hospital department * (ABNORMAL) POC GLUCOSE (2005 4:10 AM CDT) GLUCOSE POC 98(H) 50 - 80 mg/dL INTERFACE SYSTEM 2005 4:10 AM CDT Shante Saunders MD POINT OF CARE TESTING Final Result Performing Organization Address City/[facility] Phone Number INTERFACE SYSTEM Refer to clinic/hospital department * (ABNORMAL) POC GLUCOSE (2005 1:18 AM CDT) GLUCOSE POC 82(H) 50 - 80 mg/dL INTERFACE SYSTEM 2005 1:18 AM CDT Shante Saunders MD POINT OF CARE TESTING Final Result Performing Organization Address [facility] Phone Number INTERFACE SYSTEM Refer to clinic/hospital department * POC GLUCOSE (2005 7:22 PM CDT) GLUCOSE POC 78 50 - 80 mg/dL INTERFACE SYSTEM 2005 7:22 PM CDT us Shante Saunders MD POINT OF CARE TESTING Final Result Performing Organization Address [facility] Phone Number INTERFACE SYSTEM Refer to clinic/hospital [...] COM F inal Result Performing Organization Address City/[facility] de Phone Number INTERFACE SYSTEM Refer to clinic/hospital department * BILIRUBIN, TOTAL AND DIRECT (2005 4:29 AM CDT) BILIRUBIN TOTAL 6.3 0.5 - 10.0 mg/dL INTERFACE SYSTEM BILIRUBIN DIRECT 0.4 0.0 - 1.0 mg/dL INTERFACE SYSTEM 2005 4:29 AM CDT Shante Saunders MD CHEMISTRY ORDERABLES Final Result Performing Organization Address [facility] Phone Number INTERFACE SYSTEM Refer to clinic/hospital [...] INTERFACE SYSTEM Comment: As of 05 the [facility] has changed testing methods. The new reference range is 1.7-2.4 The old referance range was 1.6-2.3 2005 4:29 AM CDT Shante Saunders MD CHEMISTRY ORDERABLES Final Result Performing Organization Address [facility] Phone Number INTERFACE SYSTEM Refer to clinic/hospital [...] ORDERABLES Final Resul t Performing Organization Address City/[facility] Phone Number INTERFACE SYSTEM Refer to clinic/hospital department * (ABNORMAL) POC GLUCOSE (2005 10:14 PM CDT) GLUCOSE POC 96(H) 50 - 80 mg/dL INTERFACE SYSTEM 2005 10:1 4 PM CDT Shante Saunders MD POINT OF CARE TESTING Final Result Performing Organization Address [facility] Phone Number INTERFACE SYSTEM Refer to clinic/hospital department * (ABNORMAL) POC GLUCOSE (2005 9:55 AM CDT) GLUCOSE POC 104(H) 50 - 80 mg/dL INTERFACE SYSTEM 2005 9:55 AM CDT Shante Saunders MD POINT OF CARE TESTING Final Result Performing Organization Address [facility] Phone Number INTERFACE SYSTEM Refer to clinic/hospital department * PLATELET COUNT (2005 9:53 AM CDT) Pathologist [facility] PLATELETS 218 140 - 440 K/ul INTERFACE SYSTEM 2005 9:53 AM CDT Shante Saunders MD HEMATOLOGY ORDERABLES Final Result Performing Organization Address City/[facility] de Phone Number INTERFACE SYSTEM Refer to [...] COM F inal Result Performing Organization Address [facility] de Phone Number INTERFACE SYSTEM Refer to [...] HEMATOLOGY ORDERABLES Final Result Performing Organization Address [facility] Phone Number INTERFACE SYSTEM Refer to clinic/hospital department * (ABNORMAL) POC GLUCOSE (2005 7:18 AM CDT) GLUCOSE POC 98(H) 50 - 80 mg/dL INTERFACE SYSTEM 2005 7:18 AM CDT Shante Saunders MD POINT OF CARE TESTING Final Result Performing Organization Address City/[facility] Co de Phone Number INTERFACE SYSTEM Refer to clinic/hospital department * BILIRUBIN, TOTAL AND DIRECT (2005 4:20 AM CDT) BILIRUBIN TOTAL 5.3 0.5 - 10.0 mg/dL INTERFACE SYSTEM BILIRUBIN DIRECT 0.5 0.0 - 1.0 mg/dL INTERFACE SYSTEM 2005 4:20 AM CDT Shante Saunders MD CHEMISTRY ORDERABLES Final Result Performing Organization Address City/[facility] Co de Phone Number INTERFACE SYSTEM Refer [...] INTERFACE SYSTEM Comment: As of 05 the [facility] has changed testing methods. The new reference range is 1.7-2.4 The old referance range was 1.6-2.3 2005 4:20 AM CDT Shante Saunders MD CHEMISTRY ORDERABLES Final Result Performing Organization Address City/[facility] Co de Phone Number INTERFACE SYSTEM Refer [...] ORDERABLES Final Resul t Performing Organization Address City/[facility] Co de Phone Number INTERFACE SYSTEM Refer [...] CARE TESTING Final Result Performing Organization Address [facility] Co de Phone Number INTERFACE SYSTEM Refer [...] COM F inal Result Performing Organization Address City/[facility] Co de Phone Number INTERFACE SYSTEM Refer to clinic/hospital department * BILIRUBIN, TOTAL AND DIRECT (2005 4:41 AM CDT) BILIRUBIN TOTAL 6.0 0.5 - 10.0 mg/dL INTERFACE SYSTEM BILIRUBIN DIRECT 0.7 0.0 - 1.0 mg/dL INTERFACE SYSTEM 2005 4:41 AM CDT Shante Saunders MD CHEMISTRY ORDERABLES Final Result Performing Organization Address [facility] Phone Number INTERFACE SYSTEM Refer to clinic/hospital [...] INTERFACE SYSTEM Comment: As of 05 the [facility] has changed testing methods. The new reference range is 1.7-2.4 The old referance range was 1.6-2.3 2005 4:41 AM CDT Shante Saunders MD CHEMISTRY ORDERABLES Final Result Performing Organization Address City/[facility] de Phone Number INTERFACE SYSTEM Refer to [...] HEMATOLOGY ORDERABLES Final Result Performing Organization Address [facility] Phone Number INTERFACE SYSTEM Refer to clinic/hospital department * (ABNORMAL) POC GLUCOSE (2005 11:45 PM CDT) GLUCOSE POC 102(H) 50 - 80 mg/dL INTERFACE SYSTEM 2005 11:4 5 PM CDT Shante Saunders MD POINT OF CARE TESTING Final Result Performing Organization Address City/[facility] de Phone Number INTERFACE SYSTEM Refer to [...] ORDERABLES Final Resul t Performing Organization Address [facility] Phone Number INTERFACE SYSTEM Refer to clinic/hospital [...] COM F inal Result Performing Organization Address [facility] Phone Number INTERFACE SYSTEM Refer to clinic/hospital department * BILIRUBIN, TOTAL AND DIRECT (2005 4:56 AM CDT) BILIRUBIN TOTAL 6.4 0.5 - 10.0 mg/dL INTERFACE SYSTEM BILIRUBIN DIRECT 0.6 0.0 - 1.0 mg/dL INTERFACE SYSTEM 2005 4:56 AM CDT Shante Saunders MD CHEMISTRY ORDERABLES Final Result Performing Organization Address [facility] Phone Number INTERFACE SYSTEM Refer to clinic/hospital [...] INTERFACE SYSTEM Comment: As of 05 the [facility] has changed testing methods. The new reference range is 1.7-2.4 The old referance range was 1.6-2.3 2005 4:5 6 AM CDT Shante Saunders MD CHEMISTRY ORDERABLES Final Result Performing Organization Address [facility] de Phone Number INTERFACE SYSTEM Refer to [...] HEMATOLOGY ORDERABLES Final Result Performing Organization Address [facility] de Phone Number INTERFACE SYSTEM Refer to clinic/hospital department * POC GLUCOSE (2005 12:48 AM CDT) GLUCOSE POC 73 50 - 80 mg/dL INTERFACE SYSTEM 2005 12:4 8 AM CDT Shante Saunders MD POINT OF CARE TESTING Final Result Performing Organization Address City/[facility] de Phone Number INTERFACE SYSTEM Refer to clinic/hospital department * (ABNORMAL) POC GLUCOSE (2005 7:33 PM CDT) GLUCOSE POC 100(H) 50 - 80 mg/dL INTERFACE SYSTEM 2005 7:33 PM CDT Shante Saunders MD POINT OF CARE TESTING Final Result Performing Organization Address [facility] Phone Number INTERFACE SYSTEM Refer to clinic/hospital department * GENTAMICIN LEVEL TROUGH (2005 10:35 AM CDT) GENTAMICIN, TROUGH 0.5 0.0 - 2.0 mcg/mL INTERFACE SYSTEM 2005 10:3 5 AM CDT Shante Saunders MD CHEMISTRY ORDERABLES Final Result Performing Organization Address [facility] Phone Number INTERFACE SYSTEM Refer to clinic/hospital [...] ORDERABLES Final Resul t Performing Organization Address City/[facility] de Phone Number INTERFACE SYSTEM Refer to [...] COM F inal Result Performing Organization Address [facility] de Phone Number INTERFACE SYSTEM Refer to clinic/hospital department * BILIRUBIN, TOTAL AND DIRECT (2005 4:29 AM CDT) BILIRUBIN TOTAL 6.4 0.5 - 10.0 mg/dL INTERFACE SYSTEM BILIRUBIN DIRECT 0.9 0.0 - 1.0 mg/dL INTERFACE SYSTEM 2005 4:29 AM CDT Shante Saunders MD CHEMISTRY ORDERABLES Final Result Performing Organization Address [facility] de Phone Number INTERFACE SYSTEM Refer to [...] INTERFACE SYSTEM Comment: As of 05 the [facility] has changed testing methods. The new reference range is 1.7-2.4 The old referance range was 1.6-2.3 2005 4:29 AM CDT Shante Saunders MD CHEMISTRY ORDERABLES Final Result Performing Organization Address [facility] Phone Number INTERFACE SYSTEM Refer to clinic/hospital [...] ORDERABLES Final Resul t Performing Organization Address [facility] Phone Number INTERFACE SYSTEM Refer to clinic/hospital department * BILIRUBIN, TOTAL AND DIRECT (2005 7:40 PM CDT) BILIRUBIN TOTAL 6.4 0.5 - 10.0 mg/dL INTERFACE SYSTEM BILIRUBIN DIRECT 0.6 0.0 - 1.0 mg/dL INTERFACE SYSTEM 2005 7:40 PM CDT Shante Saunders MD CHEMISTRY ORDERABLES Final Result Performing Organization Address [facility] de Phone Number INTERFACE SYSTEM Refer to [...] CHEMISTRY ORDERABLES Final Result Performing Organization Address City/[facility] Co de Phone Number INTERFACE SYSTEM Refer [...] WITH DIFFERENTIAL (2005 7:40 PM CDT) Pathologist [facility] WBC 7.4(L) 9.0 - 30.0 K/ul INTERFACE [...] ORDERABLES Final Resul t Performing Organization Address City/[facility] de Phone Number INTERFACE SYSTEM Refer to clinic/hospital department * BILIRUBIN, TOTAL AND DIRECT (2005 12:57 PM CDT) BILIRUBIN TOTAL 4.9 0.5 - 10.0 mg/dL INTERFACE SYSTEM BILIRUBIN DIRECT 0.5 0.0 - 1.0 mg/dL INTERFACE SYSTEM 2005 12:5 7 PM CDT Shante Saunders MD CHEMISTRY ORDERABLES Final Result Performing Organization Address [facility] Phone Number INTERFACE SYSTEM Refer to clinic/hospital [...] CHEMISTRY ORDERABLES Final Result Performing Organization Address [facility] Phone Number INTERFACE SYSTEM Refer to clinic/hospital department * METABOLIC SCREEN (2005 6:03 AM CDT) PKU Sent to Reference Lab INTERFACE SYSTEM 2005 6:03 AM CDT Shante Saunders MD CHEMISTRY ORDERABLES Final Result Performing Organization Address [facility] Phone Number INTERFACE SYSTEM Refer to clinic/hospital [...] COM F inal Result Performing Organization Address [facility] Phone Number INTERFACE SYSTEM Refer to clinic/hospital [...] CHEMISTRY ORDERABLES Final Result Performing Organization Address [facility] Phone Number INTERFACE SYSTEM Refer to clinic/hospital [...] HEMATOLOGY ORDERABLES Final Result Performing Organization Address [facility] Phone Number INTERFACE SYSTEM Refer to clinic/hospital [...] ORDERABLES Final Resul t Performing Organization Address [facility] Phone Number INTERFACE SYSTEM Refer to clinic/hospital [...] ORDERABLES Final Resul t Performing Organization Address [facility] Co de Phone Number INTERFACE SYSTEM Refer [...] ORDERABLES Final Resul t Performing Organization Address City/[facility] Phone Number INTERFACE SYSTEM Refer to clinic/hospital department * POC GLUCOSE (2005 10:49 PM CDT) GLUCOSE POC 52 50 - 80 mg/dL INTERFACE SYSTEM 2005 10:4 9 PM CDT Shante Saunders MD POINT OF CARE TESTING Final Result Performing Organization Address [facility] Co de Phone Number INTERFACE SYSTEM Refer to clinic/hospital department * (ABNORMAL) MAGNESIUM LEVEL (2005 10:30 PM CDT) MAGNESIUM 2.8(H) 1.7 - 2.4 mg/dL INTERFACE SYSTEM Comment: As of 05 the [facility] has changed testing methods. The new reference range is 1.7-2.4 The old referance range was 1.6-2.3 2005 10:3 0 PM CDT Shante Saunders MD CHEMISTRY ORDERABLES Final Result Performing Organization Address [facility] Co de Phone Number INTERFACE SYSTEM Refer to clinic/hospital department * (ABNORMAL) BASIC METABOLIC PANEL (2005 10:30 PM CDT) Pathologist [facility] GLUCOSE 26(AA) 50 - 80 mg/dL INTERFACE [...] CHEMISTRY ORDERABLES Final Result Performing Organization Address [facility] de Phone Number INTERFACE SYSTEM Refer to [...] and may represent the tentorium and/or vessels. [facility] 914 Dictated By: Yvrose Cid M.D. Electronically Signed By: Yvrose Cid M.D. Date Signed: 05 [facility] Procedure Note Provider, Historical - 02/27/2009 HEAD [...] and may represent the tentorium and/or vessels. [facility] 914 Dictated By: Yvrose Cid M.D. Electronically Signed By: Yvrose Cid M.D. Date Signed: 05 [facility] us Shante Saunders MD US ORDERABLES Final [...] Provider, Historical - 02/27/2009 2005 - AP CHEST AND ABDOMEN AT [...] [facility] Procedure Note Provider, Historical - 02/27/2009 INFANT CHEST / ABDOMEN: DATE: 2005 at 0434 [...] 01/03/2009 7:49 AM CDT CHEST/ABDOMEN HISTORY: Premature infant. PRIOR: July [birth year]. [...] Primary documented in this encounter Care Teams Tire Builder Operator Relationship Specialty Start Date End Date Edy Ramos MD NO ADDRESS ON FILE PCP - General 05 documented as of this encounter
[2025-02-20 21:16] VITALS: BP 129/72; PULSE 93; RESP 16; TEMP 36.4; O2SAT 98; BMI 19.1
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
== END 2025-02-20 22:50 | disposition home or self-care (01) ==
PROVIDERS: Emergency Provider Physician Assistant; PCP Nurse Practitioner Family
DX: R51.9 Headache, unspecified (principal); F07.81 Postconcussional syndrome
CPT/HCPCS: 99283